=== PATIENT | female | born 1995 | race Caucasian/White ===

== ENCOUNTER 2017-01-16 03:08 | Inpatient (IN) | payer OTHER ==
[2017-01-16] MEDS ORDERED: Haloperidol INJ IV/IM* 5 MG/ML AMP IM ONE (03:32)
[2017-01-16] MEDS ORDERED: diPHENhydraMINE IV* 50 MG/ML 1 ml VIAL (BENADRYL) IM ONE (03:32)
[2017-01-16] MEDS ORDERED: LORazepam INJ* 2 MG/ML 1 ML VIAL IM ONE (03:32)
[2017-01-16] MEDS ORDERED: LORazepam INJ* 2 MG/ML 1 ML VIAL ONE (03:34)
[2017-01-16] MEDS ORDERED: Haloperidol INJ IV/IM* 5 MG/ML AMP ONE (03:34)
[2017-01-16] MEDS ORDERED: diPHENhydraMINE IV* 50 MG/ML 1 ml VIAL (BENADRYL) ONE (03:34)
--- NOTE | 2017-01-16 04:01 | ED ---
Ronald Webster Aidan, scribed for Jean Brennan MD on 01/16/17 at 0334 . Altered Mental Status - HPI Summary HPI Summary: 21 y/o female presents to the ED with a complaint of an acute, moderate-to- severe episode of AMS/psychosis that resulted from sleep deprivation. According to her boyfriend, she had been talking more frequently since 01/11/2017 when she arrived back to school from spring. 4 days ago, she stayed up all night preparing for an exam that she had 3 days ago. 2 days ago, her boyfriend estimates that she got roughly 5 hours of sleep. Yesterday, her boyfriend noticed that she was talking uncontrollably. She then had an episode of win, followed by screaming. Soon after, she called her mom, became very serious, and began talking about how C02 in the air is poisoning people. According to her mother, she has a history of sleep deprivation-induced psychosis. Her mother claims that she has been well for the past 2.5 years and has not been hospitalized for symptoms like these in past 3 years. No signs of SI/HI. - History Of Current Complaint Chief Complaint: EDMentalHealth Stated Complaint: MHE Time Seen by Provider: 01/16/17 03:09 Hx Obtained From: Family/[employer] - Pt's boyfriend Hx From Patient Unobtainable Due To: Altered Mental Status Hx Last Menstrual Period: unknown Last Known Well Date: before 01/10/17 Onset/Duration: Unknown, Still Present Timing: Intermittent - increased win followed by an episode of screaming and psychosis Severity Initially: Moderate Severity Currently: Moderate Character: Confusion - win, episode of screaming, psychosis Aggravating Factor(s): Other - sleep deprivation Alleviating Factor(s): Other - unknown Associated Signs And Symptoms: Negative: Negative - sleep deprivation, win, episode of screaming and psychosis Related History: Similar Episode/Diagnosed As: - Pt was hospitalized for similar symptoms resulting from sleep deprivation roughly 3 years ago - Allergies/Home Medications Allergies/Adverse Reactions: Allergies Allergy/AdvReac Type Severity Reaction Status Date / Time No Known Allergies Allergy Verified 01/16/17 03:18 Home Medications: Home Medications NK [No Home Medications Reported] 01/16/17 [History Confirmed 01/16/17] PMH/Surg Hx/FS Hx/Imm Hx Infectious Disease History: No Infectious Disease History: Denies: Traveled Outside the [place] in Last 30 Days - Family History Known Family History: Positive: Hypertension - Social History Occupation: Student Lives: Alone Alcohol Use: Occasionally Substance Use Type: Reports: Marijuana Smoking Status (MU): Unknown if Ever Smoked Review of Systems Constitutional: Negative Eyes: Negative ENT: Negative Cardiovascular: Negative Respiratory: Negative Gastrointestinal: Negative Genitourinary: Negative Musculoskeletal: Negative Skin: Negative Neurological: Other - AMS, win, sleep deprivation, episode of screaming, psychosis Negative: Headache, Weakness, Paresthesia, Numbness, Syncope, Slurred Speech Positive: Other - manic. Negative: Anxious, Depressed All Other Systems Reviewed And Are Negative: Yes Physical Exam Triage Information Reviewed: Yes Vital Signs On Initial Exam: Initial Vitals Temp Pulse Resp BP Pulse Ox 99.0 F 114 18 133/80 100 01/16/17 03:14 01/16/17 03:14 01/16/17 03:14 01/16/17 03:14 01/16/17 03:14 Vital Signs Reviewed: Yes Appearance: Positive: Well-Appearing - anxious Skin: Positive: Warm Head/Face: Positive: Normal Head/Face Inspection ENT: Positive: Hearing grossly normal Neck: Positive: Supple Respiratory/Lung Sounds: Positive: Breath Sounds Present Cardiovascular: Positive: RRR Abdomen Description: Positive: Nontender, Soft Bowel Sounds: Positive: Present Musculoskeletal: Positive: Strength/ROM Intact - [place] Coma Scale Coma Scale Total: 13 Diagnostics - Vital Signs Vital Signs Temp Pulse Resp BP Pulse Ox 01/16/17 03:20 99.0 F 114 18 133/80 100 01/16/17 03:14 99.0 F 114 18 133/80 100 - Laboratory Result Diagrams: 01/16/17 04:55 01/16/17 04:55 Lab Statement: Any lab studies that have been ordered have been reviewed, and results considered in the medical decision making process. Altered Mental Statu Course/Dx - Diagnoses Discharge Diagnoses: Psychosis - Provider Notifications Instructed by Provider To: Admit As Inpatient Discharge - Discharge Plan Condition: Fair Disposition: ADMITTED TO [facility] documentation as recorded by the Ronald sosa Aidan accurately reflects the service I personally performed and the decisions made by , Jean Brennan MD.
[2017-01-16 05:23] LABS: Hematocrit 35 % (35-47); Hemoglobin 11.7 g/dl (12.0-16.0); Mean Corpuscular HGB Conc 33 g/dl (31-36); Mean Corpuscular Hemoglobin 28 pg (27-31); Mean Corpuscular Volume 85 fL (80-97); Mean Platelet Volume 11 um3 (7.4-10.4); Red Blood Count 4.15 10^6/ul (4.0-5.4); Red Cell Distribution Width 13 % (10.5-15); White Blood Count 7.7 10^3/ul (3.5-10.8)
[2017-01-16 05:25] LABS: ALT 9 U/L (7-52); AST 17 U/L (13-39); Albumin 4.3 g/dL (3.2-5.2); Alkaline Phosphatase 46 U/L (34-104); Anion Gap 7 mmol/L (2-11); BUN/Creatinine Ratio 11.5 (8-20); Blood Urea Nitrogen 11 mg/dL (6-24); CO2 Carbon Dioxide 22 mmol/L (22-32); Calcium 9.8 mg/dL (8.6-10.3); Chloride 109 mmol/L (101-111); EGFR African American 92.6 (>60); Globulin 2.8 g/dL (2-4); Glucose 121 mg/dL (70-100); Potassium 3.7 mmol/L (3.5-5.0); Sodium 138 mmol/L (133-145); Total Protein 7.1 g/dL (6.4-8.9)
[2017-01-16 05:47] LABS: Acetaminophen < 15 mcg/mL; Alcohol < 10 mg/dL (<10); Salicylate < 2.50 mg/dL (<30)
[2017-01-16 05:58] LABS: TSH (Thyroid Stimulating Horm) 2.98 mcIU/mL (0.34-5.60)
--- NOTE | 2017-01-16 08:32 | ED ---
Elizabeth Webster Janilya, scribed for Gold Gifford MD on 01/16/17 at 0713 . Progress - Progress Note Progress Note: The patient was evaluated for mental health by Dr Levine. She will be admitted to his services for further workup. The pt is currently hemodynamically stable. The diagnoses are psychosis and bipolar disorder. - Consult/PCP Time Called: 04:00 Course/Dx - Diagnoses Provider Diagnoses: Psychosis, Bipolar 1 disorder - Provider Notifications Instructed by Provider To: Admit As Inpatient Discharge - Discharge Plan Condition: Stable Disposition: ADMITTED [facility] - The documentation as recorded by the Elizabeth sosa Janilya accurately reflects the service I personally performed and the decisions made by Balta ken Walter, MD.
[2017-01-16] MEDS ORDERED: LORazepam TAB(*) 0.5 MG PO PRN (15:36)
[2017-01-16] MEDS: QUEtiapine TAB* 100 MG PO SCH (21:33)
--- NOTE | 2017-01-16 21:33 | HP ---
Amended report to add co-signature to report. INITIAL PSYCHIATRIC ASSESSMENT: DATE OF ADMISSION: 01/15/17 SUPERVISING/ATTENDING PSYCHIATRIST FOR THIS CASE: Dr. Shae Levine. IDENTIFYING INFORMATION: The patient is a 21-year-old white female admitted to this facility on 01/15/17. Admitting status is involuntary. The patient was seen and examined. The chart was reviewed and the case was discussed with clinical staff available at the time of visit. CHIEF COMPLAINT/REASON FOR ADMISSION: The patient states "basically, a lot of work." HISTORY OF PRESENT ILLNESS: The patient explains to me that she was staying awake secondary to a lot of school work. She is a senior student at [employer] and she reports that she had been staying awake for the purpose of taking preliminary exams and trying to complete other project work. She believes that she may have been awake Wednesday, Wednesday, and night with only minimal naps from which she stated that she woke up feeling refreshed , but not completely so. According to the documentation of Dr. Brennan, the emergency room physician, the patient was brought to the emergency department secondary to [id number] acute mental status change/psychosis resulting from the aforementioned sleep deprivation. At that point, apparently collateral information was obtained from the patient's boyfriend who reported that she had been taking more frequently since approximately 01/11/17, at which point she had returned to school from the spring break. He also corroborated the fact that she had been staying up in preparation for exam and had roughly slept approximately 5 hours over the course of the past few days. Her boyfriend according to the ER documentation notes that she was talking uncontrollably and then experienced what was described as an episode of win followed by the patient screaming. Again, according to the emergency room physician documentation, she had called her mother and began talking about how carbon dioxide in the air is poisoning people. Collateral obtained from the patient's mother indicated that she does have a history of sleep deprivation- induced psychosis and that she had apparently been well for the last 2-1/2 years and she has not been hospitalized for similar symptoms in approximately 3 years. Today when I discussed the presenting symptoms, the patient denied any visual or auditory hallucinations. Similarly, she denied any delusional or paranoid thought processes seeming somewhat oblivious to the circumstances that resulted in her hospitalization save for her recognition of the sleep deprivation. Today the patient informs me that she had been seeing Dr. Healy back home in [place], which apparently had treated her at some point in the past for bipolar disorder. She states that she had in the past taken the mood stabilizer , Depakote, but has not needed it in approximately the past 2 years. She does, however, indicate that she would like to perhaps seek the services of a counselor who can help with stress management. The patient was last hospitalized in approximately October 2012. However, she did state "the symptoms at this time were not the same as bipolar episode." She went on to explain that this time she simply felt stressed, panicked, and unable to calm herself, insisting that the current symptomatology was "completely different" from these circumstances and the symptoms rather that resulted in her previous hospitalization. PAST MEDICAL HISTORY: The patient informs me that she has been diagnosed with narcolepsy and there was a mention in the clinical record of hypertension which the patient seems surprised by. It is also worth noting that the patient did admit to marijuana use; however, our review of ER note from Janiya Espinosa indicates that the patient's mother had reported that her daughter "tried pot once and it put her into psychosis." CURRENT MEDICATIONS: The patient denies abuse of any current medications. ALLERGIES: The patient has no known allergies. FAMILY PSYCHIATRIC ILLNESS: Denies. PSYCHOSOCIAL HISTORY: The patient is single. She lives on campus at [employer]. She is in approximately her senior year at [employer] studying psychology. She informs me that her goal is to obtain her doctor of psychology degree. She does acknowledge a legal history in which she was arrested while in [place], attempting to help a friend who was intoxicated. SUBSTANCE USE HISTORY: The patient does admit to marijuana use. She denies alcohol use. She denies cigarette smoking which she states she gave up approximately 2 years ago. She denies any other substances of abuse. REVIEW OF SYSTEMS: General: She denies fever, chills, or night sweats. Sleep : She reports that she has been sleeping poorly, describing sleep as elusive. Energy: She acknowledges she has had high energy. Appetite: Fair. HEENT: She does report that her hearing seems to have deteriorated over the past few years. She denies any changes in vision or difficulty chewing or swallowing. Cardiovascular: She denies chest pain or palpitations. Pulmonary: She does report rapid breathing which she attributes to occurring in the context of anxiety. Gastrointestinal: She denies nausea, vomiting, or diarrhea. Genitourinary/Reproductive: She denies dysuria. Neurologically, she does report some occasional tingling in her right hand related to an injury from the handcuffs secondary to the aforementioned incident that occurred in [place]. Musculoskeletal: She denies any joint or muscle pain. Endocrine//Hematopoietic/ Lymphatic: Denies any issues. PHYSICAL EXAMINATION GENERAL APPEARANCE: The patient is well developed, well nourished, alert, and cooperative, appear to be in no acute distress at the time of the exam. HEENT: Head is normocephalic, atraumatic. NECK: Appears normal on inspection. RESPIRATORY: No respiratory distress. Lungs clear in all guerrero. CARDIAC: Rate is 80. No rubs, gallops, or murmurs appreciated. ABDOMEN: Symmetrical without distention or guarding. Bowel sounds are active in all quadrants. No tenderness or rebound tenderness appreciated in the exam. MUSCULOSKELETAL: The patient demonstrates full range of motion. Extremities: Not edematous. NEUROLOGIC: The patient is alert and oriented x3 with no focal neuro deficits. No evidence of periorbital tremor or dyskinetic movements appreciated. SKIN: Intact. Warm and dry. REVIEW OF LABORATORY DATA: Undertaken at this time, the following abnormals are noted: Hemoglobin is low at 11.1, MPV is elevated at 11, lymphocyte percentage is low at 19.8. Chemistry studies reveal an elevation in her creatinine of 0.96, elevation in glucose at 121. There are no other labs available at this time for review. MENTAL STATUS EXAM: The patient is of healthy build and appears her stated age with overall good grooming and hygiene noted. She is currently wearing disposable scrubs. On gross examination, she appears to have no physical deformities. Attitude towards the examiner was pleasant and cooperative. I do not have an opportunity to witness her gait as she chose to remain in bed for the duration of the clinical interview. She did not, however, appear to be demonstrating any noteworthy mannerisms, gestures, or tics. Her activity level was within normal limits with no overt evidence of psychomotor excitation or retardation noted. She is alert and oriented to person, place, time, and event. Speech initially was clear, coherent, goal directed; however, throughout the clinical interview at different points, she was noted to become quite verbose and the rate of her speech did potato picker, but then it did seem to decrease to normal again. She readily made eye contact. Self-reported mood is euthymic. Denies depression. She does, however, report anxiety; however, is currently denying it at this point. Affect consistent to self-reported mood. She is currently denying visual or auditory hallucinations. No overt delusion or paranoid thought processes readily appreciated. Judgment and insight appear to be improving. She is currently denying suicidal and/or homicidal ideation and is future oriented. CLINICAL IMPRESSION: This is a 21-year-old white female admitted to [facility] on 01/15/17 after several days of sleep deprivation resulting in acute mental status change. In the emergency department, apparently, she was screaming and unable to calm self or self-soothe, resulting in the need to administer diphenhydramine hydrochloride, Haldol, and Ativan. The patient was admitted under 9.39 as she was clearly unsafe to remain in the community without intervention. ADMITTING DIAGNOSIS: Unspecified bipolar and related disorder versus substance - induced psychotic disorder. PLAN OF TREATMENT: Admit to behavioral services unit. Diet will be regular. Activity as tolerated with restrictions to the unit. The patient will participate in treatment planning activities, individual, group, and milieu therapy as well as medication management sessions and discharge planning until she is stable or referred to a higher level of care. We will initiate small dose of Seroquel at h.s. to aid with sleep. TREATMENT GOAL: Stabilization. PROGNOSIS: Fair. ESTIMATED LENGTH OF STAY: 5 to 7 days. DISCHARGE CRITERIA: The patient will be discharged when she is no longer a risk to herself or others and has met the criteria set forth by the treatment team for discharge. The case was reviewed with Dr. Levine who concurred with assessment, clinical impression, and overall plan of treatment. JONATHON FAUST, [place] [id number]/[facility] #: [id number] MAYRA
[2017-01-17] MEDS: QUEtiapine TAB* 100 MG PO SCH (21:24)
[2017-01-17 23:24] LABS: Urine Bacteria Absent (Absent); Urine Bilirubin Negative (Negative); Urine Glucose Negative (Negative); Urine Nitrite Negative (Negative)
[2017-01-17 23:32] LABS: Benzodiazepine Urine Screen None Detected (None Detect)
--- NOTE | 2017-01-18 12:14 | PN ---
Subjective - Subjective Service Type: 17856 Hosp care 25 min moderate complexity Subjective: Dania reports doing better. She recognizes she was psychotic and agitated - she attributes it to stress and sleep problems (not cannabis). She said she does not think she has Bipolar, rather substance induced psychosis (historically). She agrees with further hospital care, and after review of her Seroquel refusals , prior Depakote experience, and SGA and Depakote profiles, she opted for a Depakote retrial. She agreed with psych testing and planning local aftercare. She said she feels "understimulated" on the unit and on the verge of not being okay at all - we discussed some ways of dealing with it and I addressed her other major concern - missing academic activities - by connecting her with crisis services at [facility]. Objective - Appearance Appearance: Well Developed/Nourished Hygiene: Normal Grooming: Well Kept - Behavior Psychomotor Activities: Normal - Attitude and Relatedness Attitude and Relatedness: Superficially Cooperative - Speech Quality: Unpressured Latencies: Normal Quantity: Appropriate - Mood Patient's Decription of Mood: "Anxious" - Affect Affect Consistent with: Euthymia - Thought Process Patient's Thought Process: Coherent Thought Content: No Passive Wish, No Suicidal Planning, No Homicidal Ideation, No Paranoid Ideation - Sensorium Experiencing Hallucinations: No, Sensorium is Clear - Level of Consciousness Level of Consciousness: Alert - Impulse Control Impulse Control: Tenuous - Insight and Judgement Insight and Judgement: Fair Assessment - Assessment Merits Inpatient Hospitalization: For Immediate Safety, For Stabilization, To Initiate Treatment, For Ongoing Evaluation, Consolidate Improvements, For Discharge Planning Inpatient DSM-IV Dx: Psychotic disorder NOS. Bipolar disorder by history. Cannabis use disorder Clinical Impression: 21 y/o female with history of 2 prior psychiatric admissions, psychosis, treatment for Bipolar disorder, cannabis use. She was admitted after being brought to the hospital emergency room by ambulance. Concern centered on psychosis, with delusional ideation, and upset and agitation, in the setting of stress, reduced sleep, and cannabis use. Stabilizing here. Safe on checks. Adherent with routines but not medications. At variable but mild to moderate overt distress levels. Coping is impaired versus baseline. Not overtly psychotic now. This suggests transient psychosis possibly (as previously seen) due to cannabis use. Plan - Plan Treatment Plan: Name: DANIA ERWIN Birthdate: 1995 [id number] Continued Medication Management: Start Medication Medications: Current Medications Lorazepam (Ativan Tab(*)) 0.5 mg PO Q6H PRN PRN Reason: ANXIETY Quetiapine Fumarate (Seroquel Tab*) 100 mg PO BEDTIME LYUDMILA Last Admin: 01/17/17 21:24 Dose: Not Given - Discharge Plan Discharge Plan: Outpatient Follow Up Outpatient Program: Counseling/Psych Services at [facility]
[2017-01-18] MEDS ORDERED: diPHENhydraMINE PO* 50 MG PO PRN (12:15)
[2017-01-18] MEDS ORDERED: Nicotine Inhaler* 10 MG AMP INH PRN (12:15)
[2017-01-18] MEDS: Divalproex DR TAB(*) 500 MG PO SCH ×2 (14:14→21:10)
[2017-01-19] MEDS: Divalproex DR TAB(*) 500 MG PO SCH ×2 (09:10→20:20)
--- NOTE | 2017-01-19 13:31 | PN ---
Subjective - Subjective Service Type: 46719 Hosp care 15 min low complexity Subjective: Yara reports "doing fine." Makes no delusional comments and denies any persecutory type concerns. Denies side effects with Depakote. Is "bored" and eager to plan discharge. Denies mood symptoms. Objective - Appearance Appearance: Healthy Appearing Hygiene: Normal Grooming: Well Kept - Behavior Psychomotor Activities: Normal - Attitude and Relatedness Attitude and Relatedness: Superficially Cooperative Eye Contact: Good - Speech Quality: Unpressured Latencies: Normal Quantity: Appropriate - Mood Patient's Decription of Mood: "Fine" - Affect Observed Affect: Non-labile Affect Consistent with: Euthymia - Thought Process Patient's Thought Process: Coherent, Goal Directed Thought Content: No Passive Wish, No Suicidal Planning, No Homicidal Ideation, No Paranoid Ideation - Sensorium Experiencing Hallucinations: No, Sensorium is Clear - Level of Consciousness Level of Consciousness: Alert - Impulse Control Impulse Control: Intact - Insight and Judgement Insight and Judgement: Fair Assessment - Assessment Merits Inpatient Hospitalization: To Initiate Treatment, For Ongoing Evaluation , Consolidate Improvements, For Discharge Planning Inpatient DSM-IV Dx: Psychotic disorder NOS. Bipolar disorder by history. Cannabis use disorder Clinical Impression: 21 y/o female with history of 2 prior psychiatric admissions, psychosis, treatment for Bipolar disorder, cannabis use. She was admitted after being brought to the hospital emergency room by ambulance. Concern centered on psychosis, with delusional ideation, and upset and agitation, in the setting of stress, reduced sleep, and cannabis use. Stabilized here. Is safe on checks, adherent with routines and now adherent with Depakote. Has had progressively milder distress levels. Coping is improving, was impaired versus baseline. Remains free of overt psychotic symptoms. This suggests transient psychosis possibly (as previously seen) due to cannabis use. Medication management is with Depakote. Given status expect discharge in next 2 days. Plan - Plan Treatment Plan: Name: DANIA ERWIN Birthdate: 1995 [id number] Continued Medication Management: Start Medication Medications: Current Medications Diphenhydramine HCl (Benadryl Po*) 50 mg PO BEDTIME PRN PRN Reason: INSOMNIA Divalproex Sodium (Depakote Dr Tab(*)) 500 mg PO BID LYUDMILA Last Admin: 01/19/17 09:10 Dose: 500 mg Lorazepam (Ativan Tab(*)) 0.5 mg PO Q6H PRN PRN Reason: ANXIETY Nicotine (Nicotine Inhaler*) 10 mg INH Q2H PRN PRN Reason: CRAVING - Discharge Plan Discharge Plan: Outpatient Follow Up Outpatient Program: Counseling/Psych Services at [facility]
[2017-01-20 08:10] VITALS: BP 117/86
[2017-01-20] MEDS: Divalproex DR TAB(*) 500 MG PO SCH (09:02)
--- NOTE | 2017-01-20 10:12 | DS ---
Subjective - Subjective Service Types: [facility]36 [facility] Day [facility]mt simple under 30 min Discharge Date: 01/20/17 Subjective: Yara denied setbacks and reported doing "fine." She made no delusional comments and had good perspective on prior psychosis. She expressed readiness to deal with her academics and no impediment to coping. She said she sees no barriers to support, care or emergency help if needed. I left a VM message for her psychiatrist at home with my contact info and request to discuss case. We reviewed aftercare plan and medication. I called her [facility] at home and confirmed prior dose of Depkote ER 1000 - we planned for her to have a level checked here tomorrow. Objective - Appearance Appearance: Well Developed/Nourished Hygiene: Normal Grooming: Well Kept - Behavior Psychomotor Activities: Normal - Attitude and Relatedness Attitude and Relatedness: Cooperative Eye Contact: Good - Speech Quality: Unpressured Latencies: Normal Quantity: Appropriate - Mood Patient's Decription of Mood: "Fine" - Affect Observed Affect: Non-labile Affect Consistent with: Euthymia - Thought Process Patient's Thought Process: Coherent, Goal Directed Thought Content: No Passive Wish, No Suicidal Planning, No Homicidal Ideation, No Paranoid Ideation - Sensorium Experiencing Hallucinations: No, Sensorium is Clear - Level of Consciousness Level of Consciousness: Alert - Impulse Control Impulse Control: Intact - Insight and Judgement Insight and Judgement: Fair Treatment Course & Assessment Clinical Course & Impression: 21 y/o female with history of 2 prior psychiatric admissions, psychosis, treatment for Bipolar disorder, cannabis use. She was admitted after being brought to the hospital emergency room by ambulance. Concern centered on psychosis, with delusional ideation, and upset and agitation, in the setting of stress, reduced sleep, and cannabis use. 01/20/17 Clear for release. Yara rapidly stabilized here. She was safe on checks, adherent with routines and in agreement with the ongoing plan of care. She demonstrated progressively milder distress levels. Her coping improving, it was initially impaired versus baseline, and is no longer. She remained free of overt psychotic symptoms. This suggests transient psychosis possibly (as previously seen) due to cannabis use. Medication management is with Depakote. I confirmed her prior dose was 1000mg ER - current is 1000 DR. Given her status discharge is appropriate. Risk concern centered on her apparent impairment and risk of harm. At this time it is corrected and risk is back to baseline. Her condition and history represent chronic risk factors for suicide and impulsive violence, or inadvertent harm if impaired. Acute risk of intentional harm to self/other at this time is assessed as very low, on the basis of patient's low symptom burden, absence of impairment, and benign observed behaviors. Clear for Discharge: Adequate Clinical Respons, Acceptable Safety Profile, Low Utility of Inpt Care Inpatient DSM-IV Dx: Psychotic disorder NOS. Bipolar disorder by history. Cannabis use disorder Discharge Planning - Discharge Planning Discharge Plan: Outpatient Follow Up Outpatient Program: Counseling[facility]Psych Services at [facility] Recommendations for Continuing Care: Medication Management, Psychotherapy, Substance Abuse Counseling, Therapeutic Drug Levels - [place] [facility] [place], with instruction to fax result to [facility] Medications: Current Medications Divalproex Sodium (Depakote Dr Tab(*)) 500 mg PO BID LYUDMILA Last Admin: 01/20/17 09:02 Dose: 500 mg Discharge Planning: Prescriptions provided for discharge [x] Yes [] No Follow up care details as per social work arrangements. Patient response to discharge plan: [x] eager for discharge [] agreeable with discharge plan [] ambivalent about discharge [] disagrees with discharge today
--- NOTE | 2017-01-20 17:42 | CONS ---
PSYCHOLOGICAL REPORT: DATE OF CONSULT: 01/19/17 REASON FOR REFERRAL: Elicia was referred for psychological testing secondary to concerns regarding possible manic episode, as well as characterological vulnerabilities. TEST ADMINISTERED: Elicia completed the [place] Multiphasic Personality Inventory - 2 (MMPI-2). Elicia was given feedback in individual conversation regarding testing results. BEHAVIORAL OBSERVATIONS: Elicia is a 21-year-old [facility] megan, who cites recurring difficulties with insomnia as leading to behavioral agitation which appears to have been characterized by manic-type behaviors. She describes intentionally staying up over the course of approximately 3 nights ' time with only minimal amount of naps to study for exams and complete academic projects. She reports sleeping only about 5 hours cumulatively over that period of time and eventually was brought to the emergency department secondary to what appears to have been rather severe change in mental status secondary to the sleep deprivation. Collateral was obtained from her boyfriend, who describes her change in demeanor, reporting that she was presenting with pressured speech and becoming more and more agitated. She also expressed delusional believes about her parent's home being poisoned with carbon monoxide gas. Upon her presentation in the emergency department, she needed IM medications secondary to physical agitation characterized by screaming and acting out. She has prior psychiatric admission which she described being in the context of use of synthetic LSDs that led to psychotic thinking. She also described going through a great deal of stress as it was her freshman year at [employer] and that her parents were in the process of divorce. Presently, Elicia tends to minimize and rationalize her difficulties going to great lengths to describe how she felt "wired and excited" and appears to have been successful in at least taking her examination and was quite excited upon completion. She described then going for a run, which seems to have exacerbated her insomnia and then impaired her memory. She describes historical difficulties with poor sleep regulation, describing how she has done "all-nighters before" without adverse consequences. 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 She described how the Adderall also contributes to difficulties with insomnia. She continued to rationalize her presentation in the emergency department by stating "I didn't care about niceties" and in some way was trying to care of her body. She currently denies recreational drug use and identifies apathy as a larger concern of hers. TEST RESULTS: Elicia provides a valid protocol on this administration of the MMPI-2 having only marginal elevations on two external stressor scales. Her clinical profile was remarkable for a very profound elevation on the paranoia scale (T = 85). This may be consistent with her recent difficulties with delusional content characterized by paranoid ideation regarding people being poisoned with carbon monoxide gas, but also supports concerns regarding her presentation. Persons with similar scoring on the scale of the MMPI-2 are described as being rather hostile and guarded and overly sensitive to criticisms. They are prone to be argumentative and tend to blame others for problematic circumstances. They are further described as overtly expressing hostility and then engaging in rationalization as a means of self-defense. Descriptors for persons with a "spike 6" (singlular elevation on the paranoia scale) profile such as Elicia are further described as being rather egocentric and self- righteous at times. Persons tend to externalize blame for problematic circumstances that they have at least in part created. IMPRESSIONS AND RECOMMENDATIONS: As Elicia's overt psychotic range symptoms and behavioral agitation dissipated with adequate rest in very short period of time, it appears that her periodic insomnia was the likely etiology of her symptoms. Concerns remain that this could be bipolar 1 diagnosis secondary to her difficulties with historical insomnia and subsequent instability and mood and thought content. Secondary concerns revolve around her lack of insight and overt defensiveness regarding circumstances. It was immediately apparent that she goes to great lengths to avoid assuming responsibility for her decisions and circumstances, and was very irritable and angry with staff, demanding immediate discharge and refuting any need for further medical attention despite having initiated mood stabilization drugs. Impressions also support rather immature personality makeup as this commercial loan underwriter was impressed with what seemed to be lack of insight regarding professional options regarding her major in psychology and subsequent postgraduate studies and/or vocational interest. These comments seem to supersede any possible characterological framework in terms of personality disorders, with concerns regarding what may be recurrent mood instability as a primary etiology of her symptomatology. [id number]/CPS #: [id number] MTDD
== END 2017-01-20 11:15 | disposition home or self-care (01) | DRG 885 ==
LOC: ED 03:08 → BSU 09:15
PROVIDERS: ADMIT Internal Medicine; ATTEND Psychiatry & Neurology Psychiatry
DX: F23 Brief psychotic disorder (principal); I10 Essential (primary) hypertension; F31.9 Bipolar disorder, unspecified; F12.90 Cannabis use, unspecified, uncomplicated; G47.419 Narcolepsy without cataplexy
CPT/HCPCS: 36415; 80053; 80307; 80320; 80329; 81003; 81015; 84443; 85025; 99222; 99231; 99232; 99238; A9270-GY; G0480; J1200; J1630; J2060

== ENCOUNTER 2017-01-22 05:06 | Inpatient (IN) | payer OTHER ==
[2017-01-22] MEDS ORDERED: LORazepam INJ* 2 MG/ML 1 ML VIAL ONE (05:07)
[2017-01-22] MEDS ORDERED: Haloperidol INJ IV/IM* 5 MG/ML AMP ONE (05:07)
[2017-01-22] MEDS ORDERED: diPHENhydraMINE IV* 50 MG/ML 1 ml VIAL (BENADRYL) ONE (05:07)
[2017-01-22 05:54] LABS: Hematocrit 38 % (35-47); Hemoglobin 12.6 g/dl (12.0-16.0); Mean Corpuscular HGB Conc 33 g/dl (31-36); Mean Corpuscular Hemoglobin 28 pg (27-31); Mean Corpuscular Volume 85 fL (80-97); Mean Platelet Volume 11 um3 (7.4-10.4); Red Blood Count 4.53 10^6/ul (4.0-5.4); Red Cell Distribution Width 13 % (10.5-15); White Blood Count 9.1 10^3/ul (3.5-10.8)
[2017-01-22 06:06] LABS: ALT 12 U/L (7-52); AST 19 U/L (13-39); Albumin 4.6 g/dL (3.2-5.2); Alkaline Phosphatase 43 U/L (34-104); Anion Gap 12 mmol/L (2-11); BUN/Creatinine Ratio 16.8 (8-20); Blood Urea Nitrogen 20 mg/dL (6-24); CO2 Carbon Dioxide 18 mmol/L (22-32); Calcium 9.6 mg/dL (8.6-10.3); Chloride 106 mmol/L (101-111); EGFR African American 72.3 (>60); EGFR Non-African American 56.2 (>60); Globulin 2.7 g/dL (2-4); Glucose 159 mg/dL (70-100); Potassium 3.3 mmol/L (3.5-5.0); Sodium 136 mmol/L (133-145); Total Protein 7.3 g/dL (6.4-8.9)
[2017-01-22 06:23] LABS: Acetaminophen < 15 mcg/mL; Alcohol < 10 mg/dL (<10); Salicylate < 2.50 mg/dL (<30)
[2017-01-22 06:24] LABS: Urine Bacteria Absent (Absent); Urine Bilirubin Negative (Negative); Urine Glucose 1+(50 mg/dL) (Negative); Urine Nitrite Negative (Negative)
[2017-01-22 06:30] LABS: TSH (Thyroid Stimulating Horm) 2.88 mcIU/mL (0.34-5.60)
[2017-01-22 07:05] LABS: Benzodiazepine Urine Screen None Detected (None Detect)
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
[2017-01-22] MEDS ORDERED: Divalproex DR TAB(*) 500 MG PO ONE (11:29)
[2017-01-22] MEDS ORDERED: Divalproex ER TAB(*) 500 MG ONE (21:25)
[2017-01-22] MEDS ORDERED: Al Hydrox/Mg Hydrox/Simet LIQ* 30 ML UDC PO PRN (22:41)
[2017-01-22] MEDS: Divalproex DR TAB(*) 500 MG PO SCH (22:52)
[2017-01-23] MEDS: Divalproex DR TAB(*) 500 MG PO SCH ×2 (09:16→20:45)
[2017-01-23] MEDS: Vitamin THERAPEUTIC TAB PO SCH (09:16)
--- NOTE | 2017-01-23 20:31 | HP ---
INITIAL PSYCHIATRIC ASSESSMENT: DATE OF ADMISSION: SUPERVISING PHYSICIAN: Chester Walton MD. IDENTIFYING INFORMATION: The patient is a 21-year-old white female admitted to this facility on 01/22/17. Admitting status is 9.39. The patient was seen and examined. The chart was reviewed and case was discussed with the clinical staff available at the time of the visit. CHIEF COMPLAINT/REASON FOR ADMISSION: The patient states "I realized I am still not right. I need to not have stimulation." HISTORY OF PRESENT ILLNESS: The patient was recently released from [facility] after an approximate 4-day hospital stay for psychotic disorder, NOS; bipolar by history; and cannabis use disorder. Apparently, she had returned to [facility] to resume her classes; however, on 01/22/17, the patient was apparently having difficulty sleeping which was observed by her roommate to be behaving somewhat erratically. Allegedly, she went for a walk in the middle of the night. Her friend called the police and police brought her to [facility]. Apparently in the emergency department she needed to be medicated with Haldol, Benadryl, and Ativan secondary to combative behaviors. Today, during the clinical interview, Elicia acknowledges that she has been "doing things on a whim" and acknowledges that she has been preoccupied with a variety of thoughts and that she has been unable to stop the stream of thoughts. She states that upon being discharged, she had trouble sleeping Wednesday and and noticed that she had been becoming more agitated. At different times, some psychotic themes come to light, for instance she believes that she is allergic to heat and demonstrating flight of ideas as well as some grandiosity surrounding being a researcher and discovering things that no one in the world has ever discovered. She does report that she has been medication compliant since leaving the hospital; however, proceeded to state that she needs brand name Depakote because generic is not good for her. PAST MEDICAL HISTORY: There is a history of narcolepsy and hypertension, and a history of marijuana-induced psychosis. CURRENT MEDICATIONS: Include, 1. Divalproex sodium 500 mg p.o. b.i.d. 2. Multiple vitamins daily. ALLERGIES: The patient has no known allergies. FAMILY PSYCHIATRIC HISTORY: Denies. PSYCHOSOCIAL HISTORY: The patient is single. She lives in the campus at [employer] where she is studying psychology. After this semester, she has about 3 semesters remaining until she graduates. Her goal is to pursue a doctor of psychology degree. There is a history of arrest in [place], [place] when she attempted to help the friend who was intoxicated and the mounted police had arrested her for belligerence as per the patient. SUBSTANCE USE HISTORY: The patient admits to marijuana use. She denied alcohol use, quit smoking approximately 2 years ago. Her urine toxicology was presumptively positive again for cannabinoids, sample was obtained on 01/22/17 at 07:59. REVIEW OF SYSTEMS: The patient denies fever, chills, or night sweats. She reports that sleep is still problematic for her. She acknowledges that she has high energy. Appetite is fair. HEENT: She denies any changes in hearing or vision, denies any difficulty chewing or swallowing. Cardiovascular: She denies chest pain or palpitations. Pulmonary: She denies shortness of breath or cough. Gastrointestinal: She denies nausea, vomiting, diarrhea. Genitourinary/reproductive: She denies dysuria. Neurological: She denies any issues save for pain related to an old injury secondary to the handcuffs from the aforementioned incident which occurred in [place]. Musculoskeletal: She is reporting pain from old injuries, specifically pain in her right shoulder and neck region as well as pain in her right ear which began after a tragus piercing. She also reports occasional right hip pain, which she attributes to an old sports injury. PHYSICAL EXAMINATION GENERAL APPEARANCE: The patient is well developed, well nourished, alert, and cooperative and appears to be in no acute distress at the time of exam. HEENT: Head is normocephalic and atraumatic. NECK: Appears normal on inspection. CARDIAC: No rubs, gallops, or murmurs appreciated. ABDOMEN: Symmetrical without distention or guarding. MUSCULOSKELETAL: The patient demonstrates full range of motion. Extremities not edematous. NEUROLOGICAL: The patient is alert and oriented x3 with no focal neuro deficits. No evidence of periorbital tremor or dyskinetic movements appreciated. SKIN: Intact, warm and dry. DIAGNOSTIC STUDIES/LAB DATA: Review of laboratory data undertaken at this time and the following abnormals are noted. MPV is elevated at 11, potassium is low at 3.3, carbon dioxide is low at 18, anion gap is elevated at 12, creatinine is elevated at 1.19, glucose elevated at 159. Urine protein is elevated at 2+, urine ketones elevated at 1+, hyaline casts are present and urine glucose is 1+. As previously mentioned, urine toxicology is presumptively positive for cannabinoids. MENTAL STATUS EXAM: The patient is of healthy build and appears her stated age with good grooming and hygiene noted. On gross examination, she appears to have no physical deformities. Attitude towards the examiner was pleasant and cooperative. Gait was steady. Posture erect. She did not appear to be demonstrating any noteworthy mannerisms, gestures, or tics. Activity level was within normal parameters with no overt evidence of psychomotor excitation or retardation noted. She is alert and oriented to person, place, time and events. Speech is clear, coherent, goal-directed but at times tangential. Various times throughout the clinical interview, the rate of speech did increase, but then returned to normal again. Eye contact was readily made. Self-reported mood is euthymic. She is currently denying depression and anxiety. Her affect is consistent to self-reported mood. She denies visual or auditory hallucinations. Some delusional thought processes as described above and some grandiosity appreciated. Judgment and insight fair. She is currently denying suicidal or homicidal ideation and is future oriented. CLINICAL IMPRESSION: This is a 21-year-old white female readmitted to [facility] after hospital stay of several days. She was readmitted for continuing manic symptoms with combative behavior in the emergency department necessitating administration of medications. At this time, she has been readmitted under 9.39 status as she was clearly unable to remain in the community safely. ADMITTING DIAGNOSIS: Unspecified bipolar and related disorder versus substance - induced psychotic disorder. PLAN OF TREATMENT: Admit to the behavioral service unit. Diet will be regular. Activity as tolerated with restrictions to the unit. The patient will participate in treatment planning activities, individual, group, and milieu therapy as well as medication management sessions and discharge planning until she is stable or referred to a higher level of care. We will continue medications as established by Dr. Bolanos. TREATMENT GOAL: Stabilization. PROGNOSIS: Fair. ESTIMATED LENGTH OF STAY: 5 to 7 days. DISCHARGE CRITERIA: The patient will be discharged when she is no longer a risk to herself or others and has met the criteria set forth by the treatment team for discharge. This case was reviewed with Dr. Chester Walton who concurred with clinical assessment, clinical impression, and overall plan of treatment. CHESTER FAUST, DEBORA [id number]/[facility] #: [id number] [facility] HEALTH SYSTEMVinita
[2017-01-23] MEDS: QUEtiapine TAB* 100 MG PO SCH (21:26)
[2017-01-24] MEDS: Vitamin THERAPEUTIC TAB PO SCH (08:49)
[2017-01-24] MEDS: Divalproex DR TAB(*) 500 MG PO SCH ×2 (08:49→20:14)
[2017-01-24] MEDS: Acetaminophen TAB* 325 MG PO PRN (11:21)
[2017-01-24] MEDS: QUEtiapine TAB* 100 MG PO SCH (21:35)
[2017-01-25] MEDS: Divalproex DR TAB(*) 500 MG PO SCH ×2 (08:30→21:09)
[2017-01-25] MEDS: Vitamin THERAPEUTIC TAB PO SCH (08:30)
--- NOTE | 2017-01-25 12:31 | PN ---
Subjective - Subjective Service Type: 06250 Hosp care 25 min moderate complexity Subjective: I met the patient for the first time this morning and she responded with 15 minutes of circumstantial, uninterrupted speech when asked how she's doing. She is somatic, complaining of upper extremity pain, and somewhat grandiose, talking about her straight-A average and research interests. She indicates that her sleep is improving on quetiapine. Objective - Appearance Appearance: Well Developed/Nourished Dysmorphic Features: No Hygiene: Normal Grooming: Well Kept - Behavior Psychomotor Activities: Normal Exhibits Abnormal Movement: No - Attitude and Relatedness Attitude and Relatedness: Cooperative Eye Contact: Fair - Speech Quality: Pressured Latencies: Short Quantity: Copious - Mood Patient's Decription of Mood: "Great" - Affect Observed Affect: Euphoric Affect Consistent with: Euphoria - Thought Process Patient's Thought Process: Circumstantial Thought Content: Yes Paranoid Ideation, No Passive Wish, No Suicidal Planning, No Homicidal Ideation - Sensorium Experiencing Hallucinations: No, Sensorium is Clear Type of Hallucinations: Visual: No, Auditory: No, Command: No - Level of Consciousness Orientation: Yes Intact, Yes Orientated to Time, Yes Orientated to Place, Yes Orientated to Person - Impulse Control Impulse Control: Poor - Insight and Judgement Insight and Judgement: Impaired - Group Participation Particating in Group Activities: Yes - Medication Management Medication Management Adherence: Yes Assessment - Assessment Merits Inpatient Hospitalization: For Immediate Safety, For Stabilization Inpatient DSM-IV Dx: Bipolar DO, Manic, severe with psychotic features Clinical Impression: 21 y.o. 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 Plan - Plan Treatment Plan: Name: DANIA ERWIN Birthdate: 1995 [id number] The patient is tolerating a combination of depakote and quetiapine well. Await med effect. Continued Medication Management: Start Medication Medications: Current Medications Acetaminophen (Tylenol Tab*) 650 mg PO Q4H PRN PRN Reason: PAIN or TEMP > 101 F Last Admin: 01/24/17 11:21 Dose: 650 mg Al Hydrox/Mg Hydrox/Simethicone (Maalox Plus*) 30 ml PO Q4H PRN PRN Reason: INDIGESTION Divalproex Sodium (Depakote Dr Tab(*)) 500 mg PO BID [facility] Last Admin: 01/25/17 08:30 Dose: 500 mg Multivitamins (Theragran Tab*) 1 tab PO DAILY [facility] Last Admin: 01/25/17 08:30 Dose: 1 tab Quetiapine Fumarate (Seroquel Tab*) 100 mg PO BEDTIME [facility] Last Admin: 01/24/17 21:35 Dose: 100 mg - Discharge Plan Discharge Plan: Inpatient Hospitalization
[2017-01-25] MEDS: Acetaminophen TAB* 325 MG PO PRN (19:14)
[2017-01-25 20:26] LABS: BUN/Creatinine Ratio 17.3 (8-20); Calcium 10.1 mg/dL (8.6-10.3); EGFR African American 90.4 (>60); EGFR Non-African American 70.3 (>60); Potassium 4.2 mmol/L (3.5-5.0)
[2017-01-25] MEDS: QUEtiapine TAB* 100 MG PO SCH (23:10)
[2017-01-26] MEDS: Divalproex DR TAB(*) 500 MG PO SCH ×2 (09:08→20:59)
[2017-01-26] MEDS: Vitamin THERAPEUTIC TAB PO SCH (09:08)
--- NOTE | 2017-01-26 11:04 | PN ---
MHU: Group Therapy Note - Service Type Service Type: [id number] Group Psychotherapy - Cognitive Behavioral Psychotherapy: Elicia expressed delusional belief in cbt programming, claiming to have "cured cancer" while in the 8th grade, citing expense as the reason the government would not allow her to produce the drug for treatment. She was oppositional in responses to both peers and staff when attempts were made to redirect. Insight and judgement are impaired.
--- NOTE | 2017-01-26 11:27 | PN ---
Subjective - Subjective Service Type: 56871 Hosp care 15 min low complexity Subjective: The patient continues to present with over-productive speech and grandiosity. When told about staff concerns about her continued win, she demurs "Oh, I just talk and think fast naturally. This is the way I am. It's because I'm really intelligent. Objective - Appearance Appearance: Well Developed/Nourished Dysmorphic Features: No Hygiene: Normal Grooming: Fairly Well Kept - Behavior Psychomotor Activities: Normal Exhibits Abnormal Movement: No - Attitude and Relatedness Attitude and Relatedness: Cooperative Eye Contact: Good - Speech Quality: Pressured Latencies: Short Quantity: Copious - Mood Patient's Decription of Mood: "Great" - Affect Observed Affect: Euphoric Affect Consistent with: Euphoria - Thought Process Patient's Thought Process: Tangential Thought Content: Yes Paranoid Ideation, No Passive Wish, No Suicidal Planning, No Homicidal Ideation - Sensorium Experiencing Hallucinations: No, Sensorium is Clear Type of Hallucinations: Visual: No, Auditory: No, Command: No - Level of Consciousness Level of Consciousness: Alert Orientation: Yes Intact, Yes Orientated to Time, Yes Orientated to Place, Yes Orientated to Person - Impulse Control Impulse Control: Poor - Insight and Judgement Insight and Judgement: Impaired - Group Participation Particating in Group Activities: Yes - Medication Management Medication Management Adherence: Yes Assessment - Assessment Merits Inpatient Hospitalization: For Immediate Safety, For Stabilization Inpatient DSM-IV Dx: Bipolar DO, Manic, severe with psychotic features Clinical Impression: 21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 Plan - Plan Treatment Plan: Name: DANIA ERWIN Birthdate: 1995 [id number] The patient is tolerating a combination of depakote 500mg PO BID and quetiapine 100mg PO qhs well. Will increase quetiapine to 200mg PO qhs and await med effect. Continued Medication Management: Different Medication Medications: Current Medications Acetaminophen (Tylenol Tab*) 650 mg PO Q4H PRN PRN Reason: PAIN or TEMP > 101 F Last Admin: 01/25/17 19:14 Dose: 650 mg Al Hydrox/Mg Hydrox/Simethicone (Maalox Plus*) 30 ml PO Q4H PRN PRN Reason: INDIGESTION Divalproex Sodium (Depakote Dr Tab(*)) 500 mg PO BID [facility] Last Admin: 01/26/17 09:08 Dose: 500 mg Multivitamins (Theragran Tab*) 1 tab PO DAILY [facility] Last Admin: 01/26/17 09:08 Dose: 1 tab - Discharge Plan Discharge Plan: Inpatient Hospitalization
[2017-01-26] MEDS ORDERED: QUEtiapine TAB* 100 MG PO SCH (21:00)
[2017-01-27 07:45] LABS: HDL Cholesterol 37.2 mg/dL
[2017-01-27] MEDS: Divalproex DR TAB(*) 500 MG PO SCH (09:11)
[2017-01-27] MEDS: Vitamin THERAPEUTIC TAB PO SCH (09:11)
--- NOTE | 2017-01-27 14:07 | PN ---
MHU: Group Therapy Note - Service Type Service Type: [id number] Group Psychotherapy - Cognitive Behavioral Group Therapy ( CBT):Patient presented in CBT programming as disorganized and disruptive in discussion and needed repeated redirection to attend to presented materials.
[2017-01-27] MEDS ORDERED: clonazePAM TAB(*) 1 MG PO PRN (14:30)
--- NOTE | 2017-01-27 14:38 | PN ---
Subjective - Subjective Service Type: 74023 Hosp care 15 min low complexity Subjective: Patient continues to be hyperverbal and not particularly insightful about her condition. "I took the Seroquel last night and it made me feel like I was dying !" She shows me a patient hand-out with side effect medications, stating "Do you see this? This means that Seroquel is addictive and that if I got hooked on it and stopped taking it, my heart could explode." She makes other authoritative pronouncements about medications that are either inaccurate or greatly exaggerated. "Depakote ER is so far superior to the generic Depakote I' m getting from the nurses. They're basically two totally different medications. " She announces several times that she will refuse Seroquel tonight if offered and is only willing to use clonazepam as an adjunctive to her Depakote, which she demands be changed to the ER formulation. Staff reports she's been having many negative interactions with peers, who view her as intrusive and judgmental. She denies SI or HI. Objective - Appearance Appearance: Well Developed/Nourished Dysmorphic Features: No Hygiene: Normal Grooming: Well Kept - Behavior Psychomotor Activities: Abnormal-Increased Exhibits Abnormal Movement: No - Attitude and Relatedness Attitude and Relatedness: Superficially Cooperative Eye Contact: Good - Speech Quality: Pressured Latencies: Short Quantity: Copious - Mood Patient's Decription of Mood: "Great" - Affect Observed Affect: Euphoric Affect Consistent with: Euphoria - Thought Process Patient's Thought Process: Tangential Thought Content: Yes Paranoid Ideation, No Passive Wish, No Suicidal Planning, No Homicidal Ideation - Sensorium Experiencing Hallucinations: No, Sensorium is Clear Type of Hallucinations: Visual: Yes, Auditory: Yes, Command: No - Level of Consciousness Level of Consciousness: Alert Orientation: Yes Intact, Yes Orientated to Time, Yes Orientated to Place, Yes Orientated to Person - Impulse Control Impulse Control: Poor - Insight and Judgement Insight and Judgement: Impaired - Group Participation Particating in Group Activities: Yes - Medication Management Medication Management Adherence: Yes Assessment - Assessment Merits Inpatient Hospitalization: For Immediate Safety, For Stabilization Inpatient DSM-IV Dx: Bipolar DO, Manic, severe with psychotic features Clinical Impression: 21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 Plan - Plan Treatment Plan: Name: DANIA ERWIN Birthdate: 1995 [id number] The patient is demanding a change in her medications. Per her request we will change depakote to the ER formulation, but increase the dose to 1250mg PO qhs. Quetiapine will be discontinued in favor of prn clonazepam. Will recheck VPA over the weekend. Continued Medication Management: Different Medication Medications: Current Medications Acetaminophen (Tylenol Tab*) 650 mg PO Q4H PRN PRN Reason: PAIN or TEMP > 101 F Last Admin: 01/25/17 19:14 Dose: 650 mg Al Hydrox/Mg Hydrox/Simethicone (Maalox Plus*) 30 ml PO Q4H PRN PRN Reason: INDIGESTION Multivitamins (Theragran Tab*) 1 tab PO DAILY [facility] Last Admin: 01/27/17 09:11 Dose: 1 tab - Discharge Plan Discharge Plan: Inpatient Hospitalization
[2017-01-27] MEDS ORDERED: Haloperidol INJ IV/IM* 5 MG/ML AMP ONE (16:07)
[2017-01-27] MEDS ORDERED: LORazepam TAB(*) 1 MG ONE (16:08)
[2017-01-27] MEDS ORDERED: diPHENhydraMINE PO* 50 MG ONE (16:09)
[2017-01-27] MEDS ORDERED: Haloperidol TAB* 5 MG ONE (16:09)
[2017-01-28] MEDS: Divalproex ER TAB(*) 250 MG PO SCH ×2 (04:03→20:27)
[2017-01-28] MEDS: Vitamin THERAPEUTIC TAB PO SCH ×2 (08:57→09:00)
--- NOTE | 2017-01-28 12:29 | PN ---
Subjective - Subjective Service Type: 83123 Hosp care 15 min low complexity Subjective: The patient received seclusion and prn oral medications last evening for an episode in which she was interfering with the treatment of a peer and would not follow multiple staff prompts to try to redirect her. She remains hyperverbal and fixated on the incident, feeling that staff was mistreating the peer, who is wheelchair bound and low functioning. "They don't have to stand around him talking like he's not even a human being. I told them to leave him alone and then one of them shouted 'Mind your own business' and that just set me off!" The patient was able to sleep close to 10 hours and admits that the sleep was necessary for her. Today she shows lability, becoming tearful and stating "I need to go home now!" Objective - Appearance Appearance: Well Developed/Nourished Dysmorphic Features: No Hygiene: Normal Grooming: Well Kept - Behavior Psychomotor Activities: Abnormal-Increased Exhibits Abnormal Movement: No - Attitude and Relatedness Attitude and Relatedness: Superficially Cooperative Eye Contact: Good - Speech Quality: Pressured Latencies: Short Quantity: Copious - Mood Patient's Decription of Mood: "Anxious" - Affect Observed Affect: Labile Affect Consistent with: Euphoria - Thought Process Patient's Thought Process: Tangential Thought Content: Yes Paranoid Ideation, No Passive Wish, No Suicidal Planning, No Homicidal Ideation - Sensorium Experiencing Hallucinations: No, Sensorium is Clear Type of Hallucinations: Visual: No, Auditory: No, Command: No - Level of Consciousness Level of Consciousness: Alert Orientation: Yes Intact, Yes Orientated to Time, Yes Orientated to Place, Yes Orientated to Person - Impulse Control Impulse Control: Poor - Insight and Judgement Insight and Judgement: Impaired - Group Participation Particating in Group Activities: No - Medication Management Medication Management Adherence: Partial Assessment - Assessment Merits Inpatient Hospitalization: For Immediate Safety, For Stabilization Inpatient DSM-IV Dx: Bipolar DO, Manic, severe with psychotic features Clinical Impression: 21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 Plan - Plan Treatment Plan: Name: DANIA ERWIN Birthdate: 1995 [id number] The patient is now on Depakote ER 1250mg PO qhs and prn clonazepam. She is refusing adjunctive treatment with an antipsychotic at this time. Will recheck VPA over the weekend. Continued Medication Management: Different Medication Medications: Current Medications Acetaminophen (Tylenol Tab*) 650 mg PO Q4H PRN PRN Reason: PAIN or TEMP > 101 F Last Admin: 01/25/17 19:14 Dose: 650 mg Al Hydrox/Mg Hydrox/Simethicone (Maalox Plus*) 30 ml PO Q4H PRN PRN Reason: INDIGESTION Clonazepam (Klonopin Tab(*)) 1 mg PO Q8H PRN PRN Reason: AGITATION/ANXIETY/INSOMNIA Divalproex Sodium (Depakote Er Tab(*)) 1,250 mg PO BEDTIME [facility] Last Admin: 01/28/17 04:03 Dose: Not Given Multivitamins (Theragran Tab*) 1 tab PO DAILY [facility] Last Admin: 01/28/17 09:00 Dose: 1 tab - Discharge Plan Discharge Plan: Inpatient Hospitalization
[2017-01-29] MEDS: Vitamin THERAPEUTIC TAB PO SCH (08:52)
--- NOTE | 2017-01-29 14:54 | PN ---
MHU: Group Therapy Note - Service Type Service Type: [id number] Group Psychotherapy - Cognitive Behavioral Group Therapy ( CBT):Patient was attentive and participatory in CBT programming this morning, and remained in good behavioral control. Patient expressed positive insights regarding relevant treatment interventions and goals.
--- NOTE | 2017-01-29 15:22 | PN ---
Subjective - Subjective Service Type: 58429 Hosp care 15 min low complexity Subjective: The patient is very angry about the verbage presented to her on her treatment plan. She particularly objects to staff observations that she is "still expansive but sleeping better." "Of course I'm sleeping better. I'm narcoleptic...Hello???" She is loud and haranguing, repeating several times that staff does not care about her or her fellow patients. She is now taking Depakote ER and feels fine on it. Objective - Appearance Appearance: Well Developed/Nourished Dysmorphic Features: No Hygiene: Normal Grooming: Well Kept - Behavior Psychomotor Activities: Normal Exhibits Abnormal Movement: No - Attitude and Relatedness Attitude and Relatedness: Irritable Eye Contact: Good - Speech Quality: Pressured Latencies: Short Quantity: Copious - Mood Patient's Decription of Mood: "Great" - Affect Observed Affect: Euphoric Affect Consistent with: Euphoria - Thought Process Patient's Thought Process: Tangential Thought Content: Yes Paranoid Ideation, No Passive Wish, No Suicidal Planning, No Homicidal Ideation - Sensorium Experiencing Hallucinations: No, Sensorium is Clear Type of Hallucinations: Visual: No, Auditory: No, Command: No - Level of Consciousness Level of Consciousness: Agitated Orientation: Yes Intact, Yes Orientated to Time, Yes Orientated to Place, Yes Orientated to Person - Impulse Control Impulse Control: Poor - Insight and Judgement Insight and Judgement: Impaired - Group Participation Particating in Group Activities: Yes - Medication Management Medication Management Adherence: Yes Assessment - Assessment Merits Inpatient Hospitalization: For Immediate Safety, For Stabilization Inpatient DSM-IV Dx: Bipolar DO, Manic, severe with psychotic features Clinical Impression: 21 y.o. 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 Plan - Plan Treatment Plan: Name: DANIA ERWIN Birthdate: 1995 [id number] The patient is now on Depakote ER 1250mg PO qhs and prn clonazepam. She is refusing adjunctive treatment with an antipsychotic at this time. Will recheck VPA on Wednesday and continue to monitor her affect and behavior. Continued Medication Management: Different Medication Medications: Current Medications Acetaminophen (Tylenol Tab*) 650 mg PO Q4H PRN PRN Reason: PAIN or TEMP > 101 F Last Admin: 01/25/17 19:14 Dose: 650 mg Al Hydrox/Mg Hydrox/Simethicone (Maalox Plus*) 30 ml PO Q4H PRN PRN Reason: INDIGESTION Clonazepam (Klonopin Tab(*)) 1 mg PO Q8H PRN PRN Reason: AGITATION/ANXIETY/INSOMNIA Divalproex Sodium (Depakote Er Tab(*)) 1,250 mg PO BEDTIME [facility] Last Admin: 01/28/17 20:27 Dose: 1,250 mg Multivitamins (Theragran Tab*) 1 tab PO DAILY [facility] Last Admin: 01/29/17 08:52 Dose: 1 tab - Discharge Plan Discharge Plan: Inpatient Hospitalization
[2017-01-29] MEDS: Divalproex ER TAB(*) 250 MG PO SCH (19:53)
[2017-01-30] MEDS: Vitamin THERAPEUTIC TAB PO SCH (08:56)
[2017-01-30] MEDS: Divalproex ER TAB(*) 250 MG PO SCH (20:43)
[2017-01-31] MEDS: Vitamin THERAPEUTIC TAB PO SCH (08:56)
[2017-01-31] MEDS: Divalproex ER TAB(*) 250 MG PO SCH (20:58)
[2017-02-01] MEDS: Vitamin THERAPEUTIC TAB PO SCH (08:26)
[2017-02-01 11:10] VITALS: BP 131/71
--- NOTE | 2017-02-01 11:41 | PN ---
MHU: Group Therapy Note - Service Type Service Type: 87307 Group Psychotherapy - Cognitive Behavioral Group Therapy ( CBT):Patient was attentive and participatory in CBT programming this morning, and remained in good behavioral control. Patient expressed positive insights regarding relevant treatment interventions and goals.
--- NOTE | 2017-02-02 03:31 | DS ---
DISCHARGE SUMMARY: DATE OF ADMISSION: 01/22/17 DATE OF DISCHARGE: 02/01/17 DISCHARGE DIAGNOSES: [place] I: Bipolar disorder, type 1, most recent episode manic, severe with psychotic features. [place] II: Deferred. [place] III: None. [place] IV: Moderate academic stressors. [place] V: At the time of admission was 30 and at the time of discharge is 60. CONDITION AT THE TIME OF DISCHARGE: Stable. The patient tolerating her Depakote quite well. Her level is therapeutic at 102 and she is showing no evidence of intolerance to this medication. Her affect appears much more euthymic. She is no longer making grandiose or delusional statements and her insight is good indicating her own needs to follow through with outpatient services in the community. She does have an appointment this afternoon at the [facility]. That appointment is set for 2 p.m. and she will be following up with med management and psychotherapy services with that provider. She denies any suicidal or homicidal ideations. MENTAL STATUS EXAMINATION: The patient is a young white female with long brown hair and eye glasses. She is clean, well groomed, calm, cooperative, and makes good eye contact. Speech has normal rate, tone, and volume. Mood is euthymic with full affect. Thought process is linear and goal-directed. Thought content is significant for her desire to be discharged from the hospital and continue with her education at [employer]. She is denying suicidal or homicidal ideation. She denies auditory or visual hallucinations. Insight and judgment is fair given her willingness to follow up with outpatient services in the community. Cognitively, she is awake and alert with what would appear to be an average intellect. DISCHARGE INSTRUCTIONS: To the patient are as follows: A. Medications: She is to take Depakote ER 1250 mg p.o. every night. She is also to take Klonopin 1 mg p.o. every day as needed for anxiety. B. Diet: Regular. C. Activities: As tolerated. The patient is a nonsmoker. There are no laboratory or diagnostic testing pending at the time of discharge. D. Followup care: The patient will follow up this afternoon at 2 p.m. at [facility] on the campus of [facility]. HOSPITAL COURSE: Part A: Reason for admission: The patient is a 21-year-old single white female, [employer] under-graduate, who was just discharged from this facility 2 days prior, who returned due to erratic behavior and inability to care for herself in the community. Apparently, she had just been hospitalized on a 4-day stay here on the [facility]; however, when she returned to her dormitory on the [facility], her roommates felt that she was continuing to act oddly. At one point, she got up in the middle of the night to go for a walk and her roommates were so concerned that they called the police. In the emergency room, she was combative and required p.r.n. medication with Haldol, Benadryl, and Ativan. During the clinical interview, she admitted that she had trouble sleeping the 2 nights that she was home. 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 Part B: Psychiatric treatment rendered: The patient was admitted to the Adult Behavioral Health Unit, where she was placed on q.30 minute checks for her own safety. She continued to be grandiose and over talkative and was placed on an adjunctive trial of Seroquel initially at 100 mg, then increased to 200. Unfortunately, the patient did not tolerate this stating that the medication made her feel like she was "dying." For this reason, it was discontinued. We felt that she would do better on a once daily Depakote medication and so it was switched from regular Depakote 500 mg b.i.d. to extended-release Depakote at the dose of 1250 mg once daily, which she tolerated well. Her therapeutic blood level was 102 on the morning of discharge; however, the patient showed no evidence of side effects and stated that she felt good on this dose. Progressively throughout the hospitalization, she became more cooperative. There was at least 1 episode, where she was agitated and had to go to the quiet room and there received p.o. Benadryl, Ativan, and Haldol because of her intrusiveness and interference from the treatment peers. However, at this point , she had several days of calm and cooperative behavior and she is future oriented, wanting to resume her studies and finish up her semester at [employer]. At this time, we see no barrier to her safe discharge back to community treatment in a less restrictive setting. [id number]/CPS #: [id number] MTDD
== END 2017-02-01 13:00 | disposition home or self-care (01) | DRG 885 ==
LOC: ED 05:06 → BSU 19:45
PROVIDERS: ADMIT Psychiatry & Neurology Psychiatry; ATTEND Psychiatry & Neurology Psychiatry
DX: F31.2 Bipolar disorder, current episode manic severe with psychotic features (principal); F12.90 Cannabis use, unspecified, uncomplicated; G47.419 Narcolepsy without cataplexy
CPT/HCPCS: 36415; 80048; 80053; 80061; 80164; 80307; 80320; 80329; 81003; 81015; 82306; 83036; 84443; 84702; 85025; 86703; 90853; 99222; 99231; 99232; 99238; A9270-GY; G0480; J1200; J1630; J2060

== ENCOUNTER 2017-02-05 13:56 | Inpatient (IN) | payer OTHER ==
[2017-02-05 14:33] LABS: Hematocrit 38 % (35-47); Hemoglobin 12.5 g/dl (12.0-16.0); Mean Corpuscular HGB Conc 33 g/dl (31-36); Mean Corpuscular Hemoglobin 28 pg (27-31); Mean Corpuscular Volume 85 fL (80-97); Mean Platelet Volume 10 um3 (7.4-10.4); Red Blood Count 4.42 10^6/ul (4.0-5.4); Red Cell Distribution Width 13 % (10.5-15); White Blood Count 8.5 10^3/ul (3.5-10.8)
[2017-02-05 14:50] LABS: ALT 8 U/L (7-52); AST 17 U/L (13-39); Albumin 4.5 g/dL (3.2-5.2); Alkaline Phosphatase 49 U/L (34-104); Anion Gap 7 mmol/L (2-11); BUN/Creatinine Ratio 11.5 (8-20); Blood Urea Nitrogen 12 mg/dL (6-24); CO2 Carbon Dioxide 25 mmol/L (22-32); Calcium 10.2 mg/dL (8.6-10.3); Chloride 105 mmol/L (101-111); EGFR African American 84.5 (>60); EGFR Non-African American 65.7 (>60); Globulin 2.9 g/dL (2-4); Glucose 133 mg/dL (70-100); Potassium 3.6 mmol/L (3.5-5.0); Sodium 137 mmol/L (133-145); Total Protein 7.4 g/dL (6.4-8.9)
[2017-02-05 15:18] LABS: Urine Bilirubin Negative (Negative); Urine Glucose Negative (Negative); Urine Nitrite Negative (Negative)
[2017-02-05 15:18] LABS: Acetaminophen < 15 mcg/mL; Alcohol < 10 mg/dL (<10); Salicylate < 2.50 mg/dL (<30)
[2017-02-05 15:23] LABS: TSH (Thyroid Stimulating Horm) 2.77 mcIU/mL (0.34-5.60)
[2017-02-05 15:38] LABS: Benzodiazepine Urine Screen None Detected (None Detect)
[2017-02-05] MEDS ORDERED: Haloperidol TAB* 5 MG PO ONE (19:18)
[2017-02-05] MEDS ORDERED: LORazepam TAB(*) 1 MG PO ONE (19:18)
[2017-02-05] MEDS ORDERED: Haloperidol TAB* 5 MG PO PRN (19:30)
[2017-02-05] MEDS ORDERED: LORazepam TAB(*) 1 MG PO PRN (19:30)
[2017-02-05] MEDS ORDERED: Al Hydrox/Mg Hydrox/Simet LIQ* 30 ML UDC PO PRN (20:45)
[2017-02-05] MEDS ORDERED: Acetaminophen TAB* 325 MG PO PRN (20:45)
[2017-02-05] MEDS ORDERED: LORazepam INJ* 2 MG/ML 1 ML VIAL ONE (22:00)
[2017-02-05] MEDS ORDERED: Haloperidol INJ IV/IM* 5 MG/ML AMP ONE (22:01)
[2017-02-05] MEDS ORDERED: diPHENhydraMINE IV* 50 MG/ML 1 ml VIAL (BENADRYL) ONE (22:06)
--- NOTE | 2017-02-05 22:34 | ED ---
Carlos Webster Benjamin, scribed for Jose Guadalupe Albrecht MD on 02/05/17 at 1558 . Psychiatric Complaint - HPI Summary HPI Summary: 21yo female BIB EMS and police after yelling and not amking sense in public. Limited HPI as pt is uncooperative to exam. - History Of Current Complaint Chief Complaint: EDMentalHealth Time Seen by Provider: 02/05/17 14:02 Hx Obtained From: EMS Hx From Patient Unobtainable Due To: Other - uncooperative Hx Last Menstrual Period: unknown ?: No Onset/Duration: Sudden Onset, Still Present Timing: Intermittent Episode Lasting Severity Initially: Mild Severity Currently: Mild Character: Manic Aggravating Factor(s): Nothing Alleviating Factor(s): Nothing Associated Signs And Symptoms: Positive: Negative Related History: Positive For: Prior Psychiatric Issues - Allergies/Home Medications Allergies/Adverse Reactions: Allergies Allergy/AdvReac Type Severity Reaction Status Date / Time No Known Allergies Allergy Verified 02/05/17 21:48 PMH/Surg Hx/FS Hx/Imm Hx Sensory History: Reports: Hx Contacts or Glasses Denies: Hx Cataracts, Hx Eye Injury, Hx Eye Prosthesis, Hx Glaucoma, Hx Legally Blind, Hx Macular Degeneration, Hx Vision Problem, Hx Deafness, Hx Hearing Aid, Hx Hearing Problem, Other Sensory Impairments Opthamlomology History: Reports: Hx Contacts or Glasses Denies: Hx Cataracts, Hx Eye Injury, Hx Eye Prosthesis, Hx Glaucoma, Hx Legally Blind, Hx Macular Degeneration, Hx Vision Problem, Other Sensory Impairments Neurological History: Reports: Other Neuro Impairments/Disorders - Narcolepsy Psychiatric History: Reports: Hx Inpatient Treatment, Hx Bipolar Disorder, Hx of Violent Episodes Against Others Denies: Hx Eating Disorder - Surgical History Surgery Procedure, Year, and Place: tonsilectomy age 6 Hx Anesthesia Reactions: No Infectious Disease History: Yes Infectious Disease History: Denies: Hx Clostridium Difficile, Hx Hepatitis, Hx Human Immunodeficiency Virus (HIV), Hx of Known/Suspected MRSA, Hx Shingles, Hx Tuberculosis, Traveled Outside the [place] in Last 30 Days - Family History Known Family History: Positive: Hypertension, Other - depression, hypomania - Social History Occupation: Student Lives: Alone Alcohol Use: None Alcohol Amount: "recovering addict" Substance Use Type: Reports: None Smoking Status (MU): Never Smoked Tobacco Have You Smoked in the Last Year: No Review of Systems Constitutional: Negative Eyes: Negative ENT: Negative Cardiovascular: Negative Respiratory: Negative Gastrointestinal: Negative Genitourinary: Negative Musculoskeletal: Negative Skin: Negative Neurological: Negative Psychological: Normal All Other Systems Reviewed And Are Negative: Yes Physical Exam Triage Information Reviewed: Yes Vital Signs On Initial Exam: Initial Vitals Temp Pulse Resp BP Pulse Ox 98.6 F 66 20 140/85 99 02/05/17 14:21 02/05/17 14:21 02/05/17 14:21 02/05/17 14:21 02/05/17 14:21 Vital Signs Reviewed: Yes Appearance: Positive: Well-Appearing, No Pain Distress, Well-Nourished Skin: Positive: Warm, Skin Color Reflects Adequate Perfusion, Dry Head/Face: Positive: Normal Head/Face Inspection Eyes: Positive: Normal ENT: Positive: Normal ENT inspection Neck: Positive: Supple, Nontender Respiratory/Lung Sounds: Positive: Clear to Auscultation, Breath Sounds Present Cardiovascular: Positive: RRR Abdomen Description: Positive: Nontender, No Organomegaly Bowel Sounds: Positive: Present Musculoskeletal: Positive: Normal, Strength/ROM Intact Neurological: Positive: Normal, Sensory/Motor Intact, Alert, Oriented to Person Place, Time, CN Intact II-III - Tal Coma Scale Coma Scale Total: 15 Diagnostics - Vital Signs Vital Signs Temp Pulse Resp BP Pulse Ox 02/05/17 14:21 98.6 F 66 20 140/85 99 - Laboratory Lab Results: Lab Results 02/05/17 02/05/17 02/05/17 Range/Units 14:19 14:19 15:00 WBC 8.5 (3.5-10.8) 10^3/ul RBC 4.42 (4.0-5.4) 10^6/ul Hgb 12.5 (12.0-16.0) g/dl Hct 38 (35-47) % MCV 85 (80-97) fL MCH 28 (27-31) pg MCHC 33 (31-36) g/dl RDW 13 (10.5-15) % Plt Count 217 (150-450) 10^3/ul MPV 10 (7.4-10.4) um3 Neut % (Auto) 70.4 (38-83) % Lymph % (Auto) 18.9 L (25-47) % Evangeline % (Auto) 10.0 H (1-9) % Eos % (Auto) 0.4 (0-6) % Baso % (Auto) 0.3 (0-2) % Absolute Neuts (auto) 6.0 (1.5-7.7) 10^3/ul Absolute Lymphs (auto) 1.6 (1.0-4.8) 10^3/ul Absolute Monos (auto) 0.9 H (0-0.8) 10^3/ul Absolute Eos (auto) 0 (0-0.6) 10^3/ul Absolute Basos (auto) 0 (0-0.2) 10^3/ul Absolute Nucleated RBC 0.01 10^3/ul Nucleated RBC % 0.1 Sodium 137 (133-145) mmol/L Potassium 3.6 (3.5-5.0) mmol/L Chloride 105 (101-111) mmol/L Carbon Dioxide 25 (22-32) mmol/L Anion Gap 7 (2-11) mmol/L BUN 12 (6-24) mg/dL Creatinine 1.04 H (0.51-0.95) mg/dL Est GFR ( Amer) 84.5 (>60) Est GFR (Non-Af Amer) 65.7 (>60) BUN/Creatinine Ratio 11.5 (8-20) Glucose 133 H (70-100) mg/dL Calcium 10.2 (8.6-10.3) mg/dL Total Bilirubin 0.40 (0.2-1.0) mg/dL AST 17 (13-39) U/L ALT 8 (7-52) U/L Alkaline Phosphatase 49 (34-104) U/L Total Protein 7.4 (6.4-8.9) g/dL Albumin 4.5 (3.2-5.2) g/dL Globulin 2.9 (2-4) g/dL Albumin/Globulin Ratio 1.6 (1-3) TSH 2.77 (0.34-5.60) mcIU/mL Beta HCG, Quant < 0.60 mIU/mL Urine Color Yellow Urine Appearance Clear Urine pH 7.0 (5-9) Ur Specific Dailey 1.005 L (1.010-1.030) Urine Protein Negative (Negative) Urine Ketones Negative (Negative) Urine Blood Negative (Negative) Urine Nitrate Negative (Negative) Urine Bilirubin Negative (Negative) Urine Urobilinogen Negative (Negative) Ur Leukocyte Esterase Negative (Negative) Urine Glucose Negative (Negative) Salicylates < 2.50 (<30) mg/dL Acetaminophen < 15 mcg/mL Valproic Acid 75.0 (50-100) mcg/mL Serum Alcohol < 10 (<10) mg/dL Result Diagrams: 02/05/17 14:19 02/05/17 14:19 Lab Statement: Any lab studies that have been ordered have been reviewed, and results considered in the medical decision making process. Course/Dx - Course Course Of Treatment: Ms. Rocha remained mainic and confused throughout her stay in the ED and was admitted to the MHU on an involuntary basis for her own safety. Assessment/Plan: Medically cleared (15:28) for [facility] - Differential Dx/Clinical Impression Provider Diagnosis: Bipolar 1 disorder with moderate win Discharge - Discharge Plan Condition: Stable [facility] [place] The documentation as recorded by the Carlos sosa Benjamin accurately reflects the service I personally performed and the decisions made by , Jose Guadalupe Albrecht MD.
[2017-02-05] MEDS: Divalproex ER TAB(*) 500 MG PO SCH (22:46)
[2017-02-05] MEDS: Divalproex ER TAB(*) 250 MG PO SCH (22:46)
[2017-02-06] MEDS ORDERED: Vitamin THERAPEUTIC TAB ONE (05:21)
[2017-02-06] MEDS: Vitamin THERAPEUTIC TAB PO SCH ×2 (08:57→18:08)
--- NOTE | 2017-02-06 13:12 | HP ---
HISTORY AND PHYSICAL: DATE OF ADMISSION: 02/05/17 JUSTIFICATION FOR ADMISSION: The patient is in need of 24-hour supervision and care secondary to bi zarre agitated behavior and inability to keep herself safe in a less restrictive setting. 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 Apparently, the patient was just discharg ed from the [facility] on February 01 and earlier on the date of admission, she was found o n a bridge at [facility] yelling and singing loudly, putting stickers on the bridge railing. The patient was aggressive towards the apprehending officers using vulgarity and acting in a bizar re fashion. She continued with these behaviors and aggressiveness in our emergency department resul ting in the administration of p.r.n. medications. It is not appearing at this time that she has the ability to make appropriate decisions to care for herself or keep herself safe. When she was trans ferred to the inpatient unit, she continued to rapidly pace, stating "I need to be released because I took the voluntary verbal order and I know that it is none of your business, so I am going to leav e no matter what." Her thought process was clearly tangential and grandiose. At one point, she sta wisam "I am a professional [place] and I can't be here tomorrow. I am going on a field trip and it is special." She was hyperverbal and pressured, loud, and hostile. She began to antagonize selected peers, becoming upset and shouting, "I am trying to help them, that's my right because you have oppr essed them and locked them in here." She declined her at bedtime Depakote ER, stating "I need to le ave to go get my own Depakote because this is poison." Later she was given a STAT order of Benadryl , Haldol, and Ativan through an IM injection. This morning when I met her, she is hostile, threaten ing to bere me. She is clearly hyperverbal, distractible, grandiose with flight of Ideas over talkat iveness and difficulty sleeping. She is floridly manic and clearly requiring further hospitalizatio n. PAST PSYCHIATRIC HISTORY: The patient was admitted to our unit initially on January 16 to January 20t h. She was discharged by Dr. Brandon Bolanos, but then reappeared on January 22, requiring readmission and stayed that time until February 01. On both occasions, she was stabilized on Depakote. We did try to augment this either with p.r.n. clonazepam or schedule of Seroquel at night, but she claims that she did not tolerate these. I did receive a phone call message from her mother indicating that she has done well when adding Geodon to her Depakote and the patient is willing to attempt this strateg y at this time. She apparently has a psychiatrist in the [facility] area and she has had multipl e past admissions at other facilities for bipolar win. PAST MEDICAL HISTORY: Significant for narcolepsy and hypertension. SUBSTANCE ABUSE HISTORY: Significant for abuse of cannabinoids. She denies abuse of other illicit drugs or alcohol. It is notable that her urine drug screen is positive for cannabis on admission. MEDICATIONS: 1. She takes Depakote ER 1250 mg at night. 2. She takes clonazepam 1 mg as needed for anxiety. ALLERGIES: She has no known drug allergies. FAMILY PSYCHIATRIC HISTORY: Denied. PSYCHOSOCIAL HISTORY: The patient is single. She lives in the campus of [facility] where s he is studying psychology. She apparently has three semesters remaining until she graduates and her goal is to pursue a PhD in psychology. She does have a history of arrest in [facility] when she attended to help an intoxicated friend and was actually arrested for belligerence. REVIEW OF SYSTEMS: The patient denies headache or double vision. She denies chest pain, sore throa t, cough, or difficulty breathing. She denies abdominal pain, nausea, vomiting, or diarrhea. She d enies rashes, enlarged lymph nodes, fevers, changes in weight, or difficulty ambulating. PHYSICAL EXAMINATION VITAL SIGNS: Blood pressure 140/85, heart rate 66, respiratory rate 20, and oxygen saturations are 99% on room air. HEENT: Head is normocephalic and atraumatic. NECK: Supple. LUNGS: Chest is clear to auscultation bilaterally. HEART: Reveals normal heart sounds. ABDOMEN: Soft and nontender. SKIN: Warm and dry. EXTREMITIES: Shows no sign of edema. NEUROLOGIC: She is grossly intact with no focal deficits. DIAGNOSTIC STUDIES/LAB DATA: Labs are as follows: Her complete blood count is within normal limit s. Complete metabolic panel shows that her creatinine level is 1.04 and her glucose is slightly rosanne vated at 133. Her urinalysis is within normal limits and her urine drug screen is negative for all substances tested. Her valproic acid level is therapeutic at 75. MENTAL STATUS EXAM: The patient is a young white female with long curly hair and eyeglasses. She i s wearing blue scrub. Grooming appears to be suspicion. There is no evidence of abnormal movements , although she is psychomotor agitated. Speech is loud and hyperverbal and pressured. Mood is anant c with a labile affect. Thought process is tangential. Thought content is significant for grandiose delusions. She is denying auditory or visual hallucinations. Insight and judgement are impaired g butch her agitated behavior and refusal to take antipsychotic medications prior to this admission. C ognitively, she is awake and alert with what would appear to be slightly high average intelligence g butch her academic history. DIAGNOSES: [place] I: Bipolar disorder, type 1, most recent episode of manic, severe with psychotic fe atures. [place] II: Deferred. [place] III: Hypertension and history of narcolepsy. [place] IV: Severe acad emic stressors. [place] V: At this time is 25. 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 She is on a therapeutic dose of t he Depakote ER, but clearly needs augmentation with antipsychotic therapy. We will start her on a t rial of Geodon 40 mg p.o. at bedtime and titrate this to efficacy. If she refuses antipsychotics, I think we are forced at this time to pursue judges' order. PLAN/RECOMMENDATIONS: Admit the patient to the psychiatric inpatient service and place on q.15 leonid bib checks for her own safety, resume Depakote therapy and start Geodon, contact mother for further collateral information, and encourage her to participate in milieu treatments. We will set up outpa tient followup at [facility]. [id number]/[facility] #: [id number]
[2017-02-06] MEDS: Divalproex ER TAB(*) 250 MG PO SCH (20:31)
[2017-02-06] MEDS: Divalproex ER TAB(*) 500 MG PO SCH (20:31)
[2017-02-06] MEDS: Ziprasidone * 20 MG CAP (generic Geodon) PO SCH (20:32)
[2017-02-06] MEDS ORDERED: Haloperidol TAB* 5 MG PO PRN (21:37)
[2017-02-06] MEDS ORDERED: LORazepam TAB(*) 1 MG PO PRN (21:37)
[2017-02-07] MEDS: Vitamin THERAPEUTIC TAB PO SCH (08:41)
[2017-02-07] MEDS: Divalproex ER TAB(*) 500 MG PO SCH (20:34)
[2017-02-07] MEDS: Divalproex ER TAB(*) 250 MG PO SCH (20:35)
[2017-02-07] MEDS: Ziprasidone * 20 MG CAP (generic Geodon) PO SCH (20:36)
[2017-02-08] MEDS: Vitamin THERAPEUTIC TAB PO SCH ×2 (09:41→10:02)
--- NOTE | 2017-02-08 11:29 | PN ---
Subjective - Subjective Service Type: 32837 Hosp care 15 min low complexity Subjective: Patient remains grandiose, hyperverbal, pressured with elevated thought rate and argumentative, condescending interpersonal style. "And you, Dr. Cho. You are going to be the next person that I bere at this place. It was because of you that I'm here. It was because of you that I missed my field trip. It's because of you that I'm not home right now studying for my exams! Do you know who you are dealing with? I am the smartest fucking person at [facility]!" The patient has been med-compliant, somewhat isolative and yelling at staff periodically. She denies SI or HI. Objective - Appearance Appearance: Well Developed/Nourished Dysmorphic Features: No Hygiene: Normal Grooming: Fairly Well Kept - Behavior Psychomotor Activities: Abnormal-Increased Exhibits Abnormal Movement: No - Attitude and Relatedness Attitude and Relatedness: Hostile Eye Contact: Good - Speech Quality: Pressured Latencies: Short Quantity: Copious - Affect Observed Affect: Labile Affect Consistent with: Euphoria - Thought Process Patient's Thought Process: Tangential Thought Content: Yes Paranoid Ideation, No Passive Wish, No Suicidal Planning, No Homicidal Ideation - Sensorium Experiencing Hallucinations: No, Sensorium is Clear Type of Hallucinations: Visual: No, Auditory: No, Command: No - Level of Consciousness Level of Consciousness: Agitated Orientation: Yes Intact, Yes Orientated to Time, Yes Orientated to Place, Yes Orientated to Person - Impulse Control Impulse Control: Poor - Insight and Judgement Insight and Judgement: Impaired - Group Participation Particating in Group Activities: No - Medication Management Medication Management Adherence: Yes Assessment - Assessment Merits Inpatient Hospitalization: For Immediate Safety, For Stabilization Inpatient DSM-IV Dx: Bipolar Type I, MRE Manic, severe with psychotic features Clinical Impression: 21 y.o. single, white, female [employer] readmitted for her third acute psychiatric admission in the last three weeks due to disruptive, agitated , manic behavior in the community. Plan - Plan Treatment Plan: Name: DANIA ERWIN Birthdate: 1995 [id number] The patient is tolerating Depakote ER 1250mg PO qhs and ziprasidone 40mg PO qhs well. We will increase ziprasidone to 120mg PO qhs this evening. Await med effect. Continued Medication Management: Different Medication Medications: Current Medications Acetaminophen (Tylenol Tab*) 650 mg PO Q4H PRN PRN Reason: PAIN or TEMP > 101 F Al Hydrox/Mg Hydrox/Simethicone (Maalox Plus*) 30 ml PO Q4H PRN PRN Reason: INDIGESTION Divalproex Sodium (Depakote Er Tab(*)) 1,000 mg PO BEDTIME [facility] Last Admin: 02/07/17 20:34 Dose: 1,000 mg Divalproex Sodium (Depakote Er Tab(*)) 250 mg PO BEDTIME [facility] Last Admin: 02/07/17 20:35 Dose: 250 mg Haloperidol (Haldol Tab*) 5 mg PO Q6H PRN PRN Reason: AGITATION Lorazepam (Ativan Tab(*)) 2 mg PO Q6H PRN PRN Reason: AGITATION Multivitamins (Theragran Tab*) 1 tab PO DAILY [facility] Last Admin: 02/08/17 10:02 Dose: 1 tab Ziprasidone (Geodon (Generic) *) 80 mg PO BEDTIME [facility] Ziprasidone (Geodon (Generic) *) 40 mg PO BEDTIME [facility] - Discharge Plan Discharge Plan: Inpatient Hospitalization
[2017-02-08] MEDS: Divalproex ER TAB(*) 250 MG PO SCH (20:27)
[2017-02-08] MEDS: Ziprasidone * 20 MG CAP (generic Geodon) PO SCH ×2 (20:27→20:28)
[2017-02-08] MEDS: Divalproex ER TAB(*) 500 MG PO SCH (20:27)
[2017-02-09] MEDS: Vitamin THERAPEUTIC TAB PO SCH ×2 (10:04→10:06)
--- NOTE | 2017-02-09 11:22 | PN ---
MHU: Group Therapy Note - Service Type Service Type: [id number] Group Psychotherapy - Cognitive Behavioral Group Therapy ( CBT):Patient was attentive and participatory in CBT programming this morning, and remained in good behavioral control. Patient expressed positive insights regarding relevant treatment interventions and goals.
--- NOTE | 2017-02-09 12:05 | PN ---
Subjective - Subjective Service Type: 04483 Hosp care 15 min low complexity Subjective: The patient is calm and cooperative. Much more interactive and less hostile today. No evidence of grandiosity. She is tolerating ziprasidone well and has been participatory in milieu activities today. Denies SI or HI. Objective - Appearance Appearance: Well Developed/Nourished Dysmorphic Features: No Hygiene: Normal Grooming: Well Kept - Behavior Psychomotor Activities: Normal Exhibits Abnormal Movement: No - Attitude and Relatedness Attitude and Relatedness: Cooperative Eye Contact: Fair - Speech Quality: Unpressured Latencies: Normal Quantity: Appropriate - Mood Patient's Decription of Mood: "Okay" - Affect Observed Affect: Fair Affect Consistent with: Euthymia - Thought Process Patient's Thought Process: Coherent Thought Content: No Passive Wish, No Suicidal Planning, No Homicidal Ideation, No Paranoid Ideation - Sensorium Experiencing Hallucinations: No, Sensorium is Clear Type of Hallucinations: Visual: No, Auditory: No, Command: No - Level of Consciousness Level of Consciousness: Alert Orientation: Yes Intact, Yes Orientated to Time, Yes Orientated to Place, Yes Orientated to Person - Impulse Control Impulse Control: Tenuous - Insight and Judgement Insight and Judgement: Fair - Group Participation Particating in Group Activities: Yes - Medication Management Medication Management Adherence: Yes Assessment - Assessment Merits Inpatient Hospitalization: Consolidate Improvements, Pending Safe DC Plan Inpatient DSM-IV Dx: Bipolar Type I, MRE Manic, severe with psychotic features Clinical Impression: 21 y.o. single, white, female [facility] readmitted for her third acute psychiatric admission in the last three weeks due to disruptive, agitated , manic behavior in the community. Plan - Plan Treatment Plan: Name: DANIA ERWIN Birthdate: 1995 [id number] The patient appears much more euthymic this morning and she is tolerating Depakote ER 1250mg PO qhs and ziprasidone 120mg PO qhs well. Consider discharging back to the community if she maintains similar gains tomorrow, (02/10 ). Continued Medication Management: Different Medication Medications: Current Medications Acetaminophen (Tylenol Tab*) 650 mg PO Q4H PRN PRN Reason: PAIN or TEMP > 101 F Al Hydrox/Mg Hydrox/Simethicone (Maalox Plus*) 30 ml PO Q4H PRN PRN Reason: INDIGESTION Divalproex Sodium (Depakote Er Tab(*)) 1,000 mg PO BEDTIME [facility] Last Admin: 02/08/17 20:27 Dose: 1,000 mg Divalproex Sodium (Depakote Er Tab(*)) 250 mg PO BEDTIME [facility] Last Admin: 02/08/17 20:27 Dose: 250 mg Haloperidol (Haldol Tab*) 5 mg PO Q6H PRN PRN Reason: AGITATION Lorazepam (Ativan Tab(*)) 2 mg PO Q6H PRN PRN Reason: AGITATION Multivitamins (Theragran Tab*) 1 tab PO DAILY [facility] Last Admin: 02/09/17 10:06 Dose: 1 tab Ziprasidone (Geodon (Generic) *) 80 mg PO BEDTIME [facility] Last Admin: 02/08/17 20:27 Dose: 80 mg Ziprasidone (Geodon (Generic) *) 40 mg PO BEDTIME [facility] Last Admin: 02/08/17 20:28 Dose: 40 mg - Discharge Plan Discharge Plan: Outpatient Follow Up Outpatient Program: Counseling/Psych Services at [place] Lab Results - Lab Results Lab Results: The patient recent lipid panel and hemoglobin A1c were as follows: 01/27/17: Total Cholesterol: 124 Triglycerides: 68 LDL: 73 HDL: 37.2 01/23/17: HgA1c: 5.6%
[2017-02-09] MEDS: Divalproex ER TAB(*) 500 MG PO SCH (20:55)
[2017-02-09] MEDS: Divalproex ER TAB(*) 250 MG PO SCH (20:56)
[2017-02-09] MEDS: Ziprasidone * 20 MG CAP (generic Geodon) PO SCH ×2 (20:56→20:57)
--- NOTE | 2017-02-10 11:33 | PN ---
Subjective - Subjective Service Type: 85568 Hosp care 15 min low complexity Subjective: Patient presents as hyperverbal and grandiose. Her mother called and voiced reservations about Dania's wellness and ability to function in the outpatient setting. Mother also expressed to staff that patient is minimizing problem of cannabis usage. Patient is very argumentative with me, denying her need for further inpatient care. "I am going to write you up because you're not doing your job properly. It's because of you that I'm missing [place]!!!" Objective - Appearance Appearance: Well Developed/Nourished Dysmorphic Features: No Hygiene: Normal Grooming: Well Kept - Behavior Psychomotor Activities: Abnormal-Increased Exhibits Abnormal Movement: No - Attitude and Relatedness Attitude and Relatedness: Hostile Eye Contact: Good - Speech Quality: Pressured Latencies: Short Quantity: Copious - Mood Patient's Decription of Mood: "Great" - Affect Observed Affect: Labile Affect Consistent with: Euphoria - Thought Process Patient's Thought Process: Tangential Thought Content: Yes Paranoid Ideation, No Passive Wish, No Suicidal Planning, No Homicidal Ideation - Sensorium Experiencing Hallucinations: No, Sensorium is Clear Type of Hallucinations: Visual: No, Auditory: No, Command: No - Level of Consciousness Level of Consciousness: Agitated Orientation: Yes Intact, Yes Orientated to Time, Yes Orientated to Place, Yes Orientated to Person - Impulse Control Impulse Control: Poor - Insight and Judgement Insight and Judgement: Impaired - Group Participation Particating in Group Activities: No - Medication Management Medication Management Adherence: Yes Assessment - Assessment Merits Inpatient Hospitalization: For Immediate Safety, For Stabilization Inpatient DSM-IV Dx: Bipolar Type I, MRE Manic, severe with psychotic features Clinical Impression: 21 y.o. single, white, female [employer] readmitted for her third acute psychiatric admission in the last three weeks due to disruptive, agitated , manic behavior in the community. Plan - Plan Treatment Plan: Name: DANIA ERWIN Birthdate: 1995 [id number] The patient appears manic and hostile this morning. She is tolerating Depakote ER 1250mg PO qhs and ziprasidone 120mg PO qhs well. Will increase ziprasidone to 160mg PO qhs. Likely keep through the weekend for further stabilization as patient has had two recent failed discharges. Continued Medication Management: Different Medication Medications: Current Medications Acetaminophen (Tylenol Tab*) 650 mg PO Q4H PRN PRN Reason: PAIN or TEMP > 101 F Al Hydrox/Mg Hydrox/Simethicone (Maalox Plus*) 30 ml PO Q4H PRN PRN Reason: INDIGESTION Divalproex Sodium (Depakote Er Tab(*)) 1,000 mg PO BEDTIME [facility] Last Admin: 02/09/17 20:55 Dose: 1,000 mg Divalproex Sodium (Depakote Er Tab(*)) 250 mg PO BEDTIME [facility] Last Admin: 02/09/17 20:56 Dose: 250 mg Haloperidol (Haldol Tab*) 5 mg PO Q6H PRN PRN Reason: AGITATION Lorazepam (Ativan Tab(*)) 2 mg PO Q6H PRN PRN Reason: AGITATION Multivitamins (Theragran Tab*) 1 tab PO DAILY [facility] Last Admin: 02/09/17 10:06 Dose: 1 tab Ziprasidone (Geodon (Generic) *) 160 mg PO BEDTIME [facility] - Discharge Plan Discharge Plan: Inpatient Hospitalization
[2017-02-10] MEDS: Vitamin THERAPEUTIC TAB PO SCH (11:54)
[2017-02-10] MEDS: Divalproex ER TAB(*) 250 MG PO SCH (20:41)
[2017-02-10] MEDS: Divalproex ER TAB(*) 500 MG PO SCH (20:41)
[2017-02-10] MEDS: Ziprasidone CAP* 80 MG PO SCH (20:41)
[2017-02-11] MEDS: Vitamin THERAPEUTIC TAB PO SCH (09:06)
--- NOTE | 2017-02-11 10:57 | PN ---
Subjective - Subjective Service Type: 23030 Hosp care 15 min low complexity Subjective: The patient remains pressured and overtalkative. She goes on at great lengths about the misunderstanding which led to rehospitalization and states that she's here "under protest" because she should be with her friends back at [place]. I spoke with her mother, Hilaria ([phone]), who feels, after speaking with her frequently by phone, that she is not at her baseline. Mother feels the patient is smoking more cannabis than what she's admitting to. Maty disagrees and states she can stop smoking pot anytime she chooses. She denies SI or HI. Objective - Appearance Appearance: Well Developed/Nourished Dysmorphic Features: No Hygiene: Normal Grooming: Well Kept - Behavior Psychomotor Activities: Normal Exhibits Abnormal Movement: No - Attitude and Relatedness Attitude and Relatedness: Cooperative Eye Contact: Fair - Speech Quality: Pressured Latencies: Short Quantity: Copious - Mood Patient's Decription of Mood: "Great" - Affect Observed Affect: Euphoric Affect Consistent with: Euphoria - Thought Process Patient's Thought Process: Tangential Thought Content: Yes Paranoid Ideation, No Passive Wish, No Suicidal Planning, No Homicidal Ideation - Sensorium Experiencing Hallucinations: No, Sensorium is Clear Type of Hallucinations: Visual: No, Auditory: No, Command: No - Level of Consciousness Level of Consciousness: Alert Orientation: Yes Intact, Yes Orientated to Time, Yes Orientated to Place, Yes Orientated to Person - Impulse Control Impulse Control: Poor - Insight and Judgement Insight and Judgement: Impaired - Group Participation Particating in Group Activities: Yes - Medication Management Medication Management Adherence: Yes Assessment - Assessment Merits Inpatient Hospitalization: For Immediate Safety, For Stabilization Inpatient DSM-IV Dx: Bipolar Type I, MRE Manic, severe with psychotic features Clinical Impression: 21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 Plan - Plan Treatment Plan: Name: DANIA ERWIN Birthdate: 1995 [id number] The patient remains manic. She is tolerating Depakote ER 1250mg PO qhs and ziprasidone 160mg PO qhs well. Have left a message with outpatient psychiatrist , Jayme Healy ([phone]) to confer about treatment plan. Likely keep through the weekend for further stabilization as patient has had two recent failed discharges. Continued Medication Management: Different Medication Medications: Current Medications Acetaminophen (Tylenol Tab*) 650 mg PO Q4H PRN PRN Reason: PAIN or TEMP > 101 F Al Hydrox/Mg Hydrox/Simethicone (Maalox Plus*) 30 ml PO Q4H PRN PRN Reason: INDIGESTION Divalproex Sodium (Depakote Er Tab(*)) 1,000 mg PO BEDTIME [facility] Last Admin: 02/10/17 20:41 Dose: 1,000 mg Divalproex Sodium (Depakote Er Tab(*)) 250 mg PO BEDTIME [facility] Last Admin: 02/10/17 20:41 Dose: 250 mg Haloperidol (Haldol Tab*) 5 mg PO Q6H PRN PRN Reason: AGITATION Lorazepam (Ativan Tab(*)) 2 mg PO Q6H PRN PRN Reason: AGITATION Multivitamins (Theragran Tab*) 1 tab PO DAILY [facility] Last Admin: 02/11/17 09:06 Dose: 1 tab Ziprasidone (Geodon Cap*) 160 mg PO BEDTIME [facility] Last Admin: 02/10/17 20:41 Dose: 160 mg - Discharge Plan Discharge Plan: Inpatient Hospitalization
[2017-02-11] MEDS ORDERED: LORazepam INJ* 2 MG/ML 1 ML VIAL ONE (17:05)
[2017-02-11] MEDS ORDERED: diPHENhydraMINE IV* 50 MG/ML 1 ml VIAL (BENADRYL) ONE (17:06)
[2017-02-11] MEDS ORDERED: Haloperidol INJ IV/IM* 5 MG/ML AMP ONE (17:06)
[2017-02-11] MEDS ORDERED: diPHENhydraMINE IV* 50 MG/ML 1 ml VIAL (BENADRYL) IM ONE (17:10)
[2017-02-11] MEDS ORDERED: Haloperidol INJ IV/IM* 5 MG/ML AMP IM ONE (17:10)
[2017-02-11] MEDS ORDERED: LORazepam INJ* 2 MG/ML 1 ML VIAL IM ONE (17:10)
[2017-02-11] MEDS ORDERED: diPHENhydraMINE PO* 50 MG PO ONE (18:00)
[2017-02-11] MEDS ORDERED: diPHENhydraMINE PO* 50 MG ONE (18:13)
[2017-02-11] MEDS: Ziprasidone CAP* 80 MG PO SCH (20:51)
[2017-02-11] MEDS: Divalproex ER TAB(*) 500 MG PO SCH (20:51)
[2017-02-11] MEDS: Divalproex ER TAB(*) 250 MG PO SCH (20:51)
[2017-02-12] MEDS: Vitamin THERAPEUTIC TAB PO SCH (08:39)
[2017-02-12] MEDS ORDERED: diPHENhydraMINE PO* 50 MG PO PRN (14:35)
--- NOTE | 2017-02-12 14:39 | PN ---
Subjective - Subjective Service Type: 76682 Hosp care 15 min low complexity Subjective: The patient had an episode of agitation last evening that required stat IM haldol, benadryl and ativan. She was upset that a male peer, who was also acting out, was receiving involuntary IM meds, and started screaming about her role in ensuring that other patients on the unit not be violated. Today, she remains grandiose, telling me about her good grades and taking me to task for her perception that I'm treating her like a child. Objective - Appearance Appearance: Well Developed/Nourished Dysmorphic Features: No Hygiene: Normal Grooming: Well Kept - Behavior Psychomotor Activities: Abnormal-Increased Exhibits Abnormal Movement: No - Attitude and Relatedness Attitude and Relatedness: Hostile Eye Contact: Poor - Speech Quality: Pressured Latencies: Short Quantity: Copious - Mood Patient's Decription of Mood: "Great" - Affect Observed Affect: Euphoric Affect Consistent with: Euphoria - Thought Process Patient's Thought Process: Tangential Thought Content: Yes Paranoid Ideation, No Passive Wish, No Suicidal Planning, No Homicidal Ideation - Sensorium Experiencing Hallucinations: No, Sensorium is Clear Type of Hallucinations: Visual: Yes, Auditory: Yes, Command: Yes - Level of Consciousness Level of Consciousness: Alert Orientation: Yes Intact, Yes Orientated to Time, Yes Orientated to Place, Yes Orientated to Person - Impulse Control Impulse Control: Poor - Insight and Judgement Insight and Judgement: Impaired - Group Participation Particating in Group Activities: No - Medication Management Medication Management Adherence: Yes Assessment - Assessment Merits Inpatient Hospitalization: For Immediate Safety, For Stabilization Inpatient DSM-IV Dx: Bipolar Type I, MRE Manic, severe with psychotic features Clinical Impression: 21 y.o. single, white, female [facility] readmitted for her third acute psychiatric admission in the last three weeks due to disruptive, agitated , manic behavior in the community. Plan - Plan Treatment Plan: Name: DANIA ERWIN Birthdate: 1995 [id number] The patient remains manic. She is tolerating Depakote ER 1250mg PO qhs and ziprasidone 160mg PO qhs well. Have left a message with outpatient psychiatrist , Jayme Healy ([phone]) to confer about treatment plan. Likely keep through the weekend for further stabilization as patient has had two recent failed discharges. Continued Medication Management: Different Medication Medications: Current Medications Acetaminophen (Tylenol Tab*) 650 mg PO Q4H PRN PRN Reason: PAIN or TEMP > 101 F Al Hydrox/Mg Hydrox/Simethicone (Maalox Plus*) 30 ml PO Q4H PRN PRN Reason: INDIGESTION Diphenhydramine HCl (Benadryl Po*) 50 mg PO Q6H PRN PRN Reason: AGITATION/ANXIETY/INSOMNIA Divalproex Sodium (Depakote Er Tab(*)) 1,000 mg PO BEDTIME [facility] Last Admin: 02/11/17 20:51 Dose: 1,000 mg Divalproex Sodium (Depakote Er Tab(*)) 250 mg PO BEDTIME [facility] Last Admin: 02/11/17 20:51 Dose: 250 mg Haloperidol (Haldol Tab*) 5 mg PO Q6H PRN PRN Reason: AGITATION Lorazepam (Ativan Tab(*)) 2 mg PO Q6H PRN PRN Reason: AGITATION Multivitamins (Theragran Tab*) 1 tab PO DAILY [facility] Last Admin: 02/12/17 08:39 Dose: 1 tab Ziprasidone (Geodon Cap*) 160 mg PO BEDTIME [facility] Last Admin: 02/11/17 20:51 Dose: 160 mg - Discharge Plan Discharge Plan: Inpatient Hospitalization
[2017-02-12] MEDS: Ziprasidone CAP* 80 MG PO SCH (21:04)
[2017-02-12] MEDS: Divalproex ER TAB(*) 250 MG PO SCH (21:04)
[2017-02-12] MEDS: Divalproex ER TAB(*) 500 MG PO SCH (21:04)
[2017-02-13] MEDS: Vitamin THERAPEUTIC TAB PO SCH (10:35)
[2017-02-13] MEDS: Divalproex ER TAB(*) 250 MG PO SCH (21:01)
[2017-02-13] MEDS: Ziprasidone CAP* 80 MG PO SCH (21:01)
[2017-02-13] MEDS: Divalproex ER TAB(*) 500 MG PO SCH (21:01)
[2017-02-14] MEDS: Vitamin THERAPEUTIC TAB PO SCH (09:44)
[2017-02-14] MEDS: Divalproex ER TAB(*) 500 MG PO SCH (20:23)
[2017-02-14] MEDS: Divalproex ER TAB(*) 250 MG PO SCH (20:23)
[2017-02-14] MEDS: Ziprasidone CAP* 80 MG PO SCH (20:23)
[2017-02-15 07:35] VITALS: BP 98/62
[2017-02-15] MEDS: Vitamin THERAPEUTIC TAB PO SCH (08:26)
--- NOTE | 2017-02-15 11:25 | PN ---
MHU: Group Therapy Note - Service Type Service Type: 20218 Group Psychotherapy - Cognitive Behavioral Group Therapy ( CBT):Patient was attentive and participatory in CBT programming this morning, and remained in good behavioral control. Patient expressed positive insights regarding relevant treatment interventions and goals.
--- NOTE | 2017-02-16 00:07 | DS ---
DISCHARGE SUMMARY: DATE OF ADMISSION: 02/05/17 DATE OF DISCHARGE: 02/15/17 DISCHARGE DIAGNOSES: Clothier I: Bipolar disorder type 1, most recent episode is manic, severe with psychotic features. Clothier II: Deferred. Clothier III: Hypertension and history of narcolepsy. Clothier IV: Severe academic stressor. Clothier V: At that time of admission was 23 and at that time of discharge is 60. CONDITION AT THE TIME OF DISCHARGE: Stable. The patient is calm and cooperative. She appears to be euthymic. Her behavior has been exemplary in the milieu over the weekend and she has had no further episodes of acting out. She has been safe on all checks and when it comes to discharge planning, she is reality focused and future oriented indicating that she will work diligently with the [employer] team as well as her professors at [employer] to get caught up and to get whatever credit she can salvage from this fallester. She is willing to follow up with both the [facility] and also her psychiatrist, Dr. Jayme Healy, in [place], [place]. The patient meets criteria at this point to receive treatment in a less restrictive setting. MENTAL STATUS EXAM: At the time of discharge, the patient is a young white female with long curly hair and eyeglasses. She is wearing causal clothing and her grooming is intact. There is no evidence of abnormal movements. Speech is notable for a rate, tone and volume, which are all within normal parameters. Mood is euthymic with a full affect. Thought process is linear and goal- directed. Thought content is significant for her reasonable concerns about getting academically caught up at the end of the semester. She is denying suicidal or homicidal ideations. There is no evidence of grandiose delusion. She denies auditory or visual hallucinations. Insight and judgement are fair given her willingness to follow up with outpatient treatment. Cognitively, she is awake and alert what would appear to be a slightly high average intellect given her academic history. DISCHARGE DIAGNOSES: Are as follows: A. Medications: 1. The patient is to take Depakote ER 1250 mg p.o. q.h.s. 2. She is also taking Geodon 160 mg p.o. q.h.s. 3. Benadryl 50 mg as needed for anxiety or insomnia. B. Diet is regular. C. Activity as tolerated. The patient is a nonsmoker. There are no diagnostic studies pending at the time of discharge. D. Followup care: The patient will be seen on 02/17/17, at the [facility]. There, she will receive both psychotherapy and psychopharmacologic management. Upon returning to [place], she will be following up with private psychiatrist, Jayme Healy , and her mother indicates that she will make this appointment. 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 Apparently, the patient was just discharged from the behavioral science unit on 02/01/17 and earlier on the date of admission, she was found on a bridge on the property of [facility], where she was observed to be yelling and singing loudly putting stickers on a foot bridge railing. The patient was aggressive towards the apprehending officers using vulgarity and acting in a bizarre fashion. She continued with these behaviors and aggressiveness in our emergency room resulting in the administration of p.r.n. stat medications. It is not appearing at the time of admission that she had the ability to make rationale decisions in order to care for herself or keep herself safe. When she was transferred back on to the inpatient unit, she continued to rapidly pace stating "I need to be released because I took the voluntary verbal order and I know that it is none of your business, so I am going to leave no matter what." Her thought process was clearly tangential and grandiose. At one point, she stated "I am a professional [place] and I cannot be here tomorrow. I am going on a field trip and it is special." She was hyperverbal and pressured, loud and hostile. She began to antagonize the peers, becoming upset and shouting "I am trying to help them that is my right because you have oppressed them and locked them in here." She declined her bedtime Depakote ER dose on the initial night of admission stating "I need to leave to get my own Depakote because the stuff you are giving me is poison." Later she was given a stat order of Benadryl, Haldol, and Ativan all through intramuscular injection. On the morning when I met her, she continued to be hostile threatening to bere me. She was clearly hyperverbal , distractible, grandiose with flight of ideas and over talkativeness as well as difficulty sleeping. She presented with florid manic symptoms and clearly required further hospitalization. Part B: Psychiatric treatment rendered: The patient was readmitted to the adult behavioral health unit where she was placed on q.30-minute checks for her own safety. On at least two other occasions, she required stat IM medications for agitation mostly related to getting involved with poor boundaries when other peers were acting out. During these episodes, she would become agitated insisting that she was standing up for the right of her peers and not being able to restrain herself from getting involved. We were able to reach out to her mother, whose name is Hilaria, who is a resident of [place], [place]. Hilaria indicated that the patient has done well when having Geodon added to her Depakote in the past. It should be noted that her Depakote level was therapeutic upon readmission indicating that she had been compliant with this following discharge. At any rate, we initiated Geodon at the low dose of 40 mg nightly and steadily titrated this up to the final effective dose of 160 mg nightly. I did place a call to her outpatient psychiatrist, Dr. Jayme Healy, at [facility]. However, that phone call was never returned. At any rate with the introduction of Geodon, the patient became progressively more euthymic. Even when other peers would act out, she resisted the temptation to get involved spending more time in appropriate therapeutic pursuit such as journaling and trying to catch up with school work. She became euthymic on the weekend just prior to discharge and was notable for her normal speech pattern and ability to plan for the future. Her mother, Hilaria, was contacted on the date of discharge and she was in support of the discharge plan. At this point, a friend of hers from college is going to be picked up and she is going to work with a canvass manager named Sharonda Waters on the staff of [employer] in order to contact all of her professors to get caught up at the end of the semester. At this point, we feel that she is appropriate to receive treatment in a less restrictive setting and we certainly wish her the best for healthy and safety. [id number]/[facility] #: [id number] MTDD
== END 2017-02-15 12:45 | disposition home or self-care (01) | DRG 885 ==
LOC: ED 13:56 → BSU 20:29
PROVIDERS: ADMIT Psychiatry & Neurology Psychiatry; ATTEND Psychiatry & Neurology Psychiatry
DX: F31.2 Bipolar disorder, current episode manic severe with psychotic features (principal); I10 Essential (primary) hypertension; G47.419 Narcolepsy without cataplexy; F12.10 Cannabis abuse, uncomplicated; Z79.899 Other long term (current) drug therapy
CPT/HCPCS: 36415; 80053; 80164; 80307; 80320; 80329; 81003; 84443; 84702; 85025; 90853; 99222; 99231; 99238; A9270-GY; G0480; J1200; J1630; J2060

== ENCOUNTER 2017-02-19 09:42 | Inpatient (IN) | payer OTHER ==
[2017-02-19] MEDS ORDERED: Haloperidol INJ IV/IM* 5 MG/ML AMP IM ONE (10:11)
[2017-02-19] MEDS ORDERED: Haloperidol INJ IV/IM* 5 MG/ML AMP ONE (10:12)
[2017-02-19] MEDS ORDERED: diPHENhydraMINE IV* 50 MG/ML 1 ml VIAL (BENADRYL) IM ONE (10:13)
[2017-02-19] MEDS ORDERED: LORazepam INJ* 2 MG/ML 1 ML VIAL IM ONE ×2 (10:13→10:25)
[2017-02-19] MEDS ORDERED: diPHENhydraMINE IV* 50 MG/ML 1 ml VIAL (BENADRYL) ONE (10:14)
[2017-02-19] MEDS ORDERED: LORazepam INJ* 2 MG/ML 1 ML VIAL ONE (10:14)
--- NOTE | 2017-02-19 12:14 | ED ---
Psychiatric Complaint - HPI Summary HPI Summary: 21 female brought in by [place] police for a mental health evaluation. Patient was very upset and agitated upon arrival. Very difficult to obtain history due to patient's frustration. Denies alcohol and drug use. States she has been taking her medications and this is all because her mother called the polo coach on her. 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 States she is filing multiple law suites against the hospital. Also asked for me to get out of her room. She was non-compliant, screaming, and trying to leave emergency room. Difficult to obtain further history. Denies complaints and stated she was fine. Denies suicidal/homicidal thoughts. - History Of Current Complaint Chief Complaint: EDMentalHealth Time Seen by Provider: 02/19/17 09:44 Hx Obtained From: Patient Hx From Patient Unobtainable Due To: Other - agitation, mood disorder Hx Last Menstrual Period: unknown ?: No Onset/Duration: Sudden Onset Character: Manic, Angry, Frustrated Aggravating Factor(s): Recent Stress Associated Signs And Symptoms: Positive: Hostile Related History: Positive For: Prior Psychiatric Issues Has Suicidal: Denies: Thoughts, With A Plan Has Homicidal: Denies: Thoughts, With A Plan - Allergies/Home Medications Allergies/Adverse Reactions: Allergies Allergy/AdvReac Type Severity Reaction Status Date / Time No Known Allergies Allergy Verified 02/19/17 15:34 PMH/Surg Hx/FS Hx/Imm Hx Endocrine/Hematology History: Denies: Hx Diabetes Cardiovascular History: Reports: Hx Hypertension Respiratory History: Denies: Hx Asthma Sensory History: Reports: Hx Contacts or Glasses Denies: Hx Cataracts, Hx Eye Injury, Hx Eye Prosthesis, Hx Glaucoma, Hx Legally Blind, Hx Macular Degeneration, Hx Vision Problem, Hx Deafness, Hx Hearing Aid, Hx Hearing Problem, Other Sensory Impairments Opthamlomology History: Reports: Hx Contacts or Glasses Denies: Hx Cataracts, Hx Eye Injury, Hx Eye Prosthesis, Hx Glaucoma, Hx Legally Blind, Hx Macular Degeneration, Hx Vision Problem, Other Sensory Impairments Neurological History: Reports: Other Neuro Impairments/Disorders - Narcolepsy Psychiatric History: Reports: Hx Inpatient Treatment, Hx Bipolar Disorder, Hx of Violent Episodes Against Others Denies: Hx Eating Disorder - Surgical History Surgery Procedure, Year, and Place: tonsilectomy age 6 Hx Anesthesia Reactions: No - Immunization History Immunizations Up to Date: Yes Infectious Disease History: No Infectious Disease History: Denies: Hx Clostridium Difficile, Hx Hepatitis, Hx Human Immunodeficiency Virus (HIV), Hx of Known/Suspected MRSA, Hx Shingles, Hx Tuberculosis, Traveled Outside the [place] in Last 30 Days - Family History Known Family History: Positive: Hypertension, Other - depression, hypomania - Social History Alcohol Use: None Alcohol Amount: "recovering addict" Substance Use Type: Reports: None Smoking Status (MU): Never Smoked Tobacco Have You Smoked in the Last Year: No Review of Systems Constitutional: Negative Cardiovascular: Negative Respiratory: Negative Gastrointestinal: Negative Musculoskeletal: Negative Skin: Negative Neurological: Negative Positive: Other - frustrated, agitated All Other Systems Reviewed And Are Negative: Yes Physical Exam Triage Information Reviewed: Yes Vital Signs On Initial Exam: Initial Vitals Resp 24 02/19/17 10:16 BP: 108/61 Pulse: 81 O2: 99 Temp: 97.6 Vital Signs Reviewed: Yes Appearance: Positive: No Pain Distress - visibily frustrated, screaming, Well- Nourished Skin: Positive: Warm, Skin Color Reflects Adequate Perfusion, Dry Head/Face: Positive: Normal Head/Face Inspection Eyes: Positive: Normal, Conjunctiva Clear ENT: Positive: Normal ENT inspection, Hearing grossly normal Neck: Positive: Supple, Nontender Respiratory/Lung Sounds: Positive: Clear to Auscultation, Breath Sounds Present. Negative: Rales, Rhonchi, Wheezes Cardiovascular: Positive: Normal, RRR, Pulses are Symmetrical in both Upper and Lower Extremities Abdomen Description: Positive: Nontender Bowel Sounds: Positive: Present Musculoskeletal: Positive: Normal, Strength/ROM Intact Neurological: Positive: Normal, Sensory/Motor Intact, Alert, Oriented to Person Place, Time Psychiatric: Positive: Other - extremely agitated and agressive, attempted to calm however patient did not want to cooperate, limited history or physical, Patient Uncooperative for Exam AVPU Assessment: Alert - [place] Coma Scale Best Eye Response: 4 - Spontaneous Best Motor Response: 6 - Obeys Commands Best Verbal Response: 5 - Oriented Coma Scale Total: 14 Diagnostics - Vital Signs Vital Signs Temp Pulse Resp BP Pulse Ox 02/19/17 11:03 97 F 109 18 123/62 99 02/19/17 10:38 24 02/19/17 10:16 24 - Laboratory Result Diagrams: 02/20/17 08:10 02/20/17 08:10 Lab Statement: Any lab studies that have been ordered have been reviewed, and results considered in the medical decision making process. Course/Dx - Course Course Of Treatment: patient was mediated IM and had to be restrained due to aggressiveness and agitation. patient was being very uncooperative. monitored while on IM medication of ativan, benedryl and haldol. medically cleared once able to obtain lab work. mental health eval. will be admitted with mood disorder NOS, Dr Meneses. - Differential Dx/Clinical Impression Differential Diagnosis/HQI/PQRI: Positive: Acute Psychosis, Bipolar Disorder, Schizophrenia, Other Provider Diagnosis: Mood disorder, Psychosis, Bipolar disorder - Physician Notifications Discussed Care Of Patient With: GILMA and Dr Meneses accepted admission Instructed by Provider To: Admit As Inpatient Patient Is Medically Stable For: Psych Evaluation Discharge - Discharge Plan Condition: Stable Disposition: ADMITTED TO [facility]
[2017-02-19] MEDS ORDERED: Al Hydrox/Mg Hydrox/Simet LIQ* 30 ML UDC PO PRN (13:52)
[2017-02-19] MEDS ORDERED: Acetaminophen TAB* 325 MG PO PRN (13:52)
[2017-02-19] MEDS ORDERED: diPHENhydraMINE PO* 50 MG PO PRN (13:54)
[2017-02-19] MEDS ORDERED: LORazepam TAB(*) 1 MG PO PRN (13:55)
[2017-02-19] MEDS ORDERED: Haloperidol TAB* 5 MG PO PRN (13:55)
[2017-02-19] MEDS: Divalproex ER TAB(*) 500 MG PO SCH (20:39)
[2017-02-19] MEDS: Divalproex ER TAB(*) 250 MG PO SCH (20:39)
[2017-02-19] MEDS: Ziprasidone CAP* 80 MG PO SCH (20:39)
[2017-02-19] MEDS ORDERED: Divalproex ER TAB(*) 500 MG PO SCH (21:00)
[2017-02-20 08:34] LABS: Hematocrit 41 % (35-47); Hemoglobin 13.4 g/dl (12.0-16.0); Mean Corpuscular HGB Conc 33 g/dl (31-36); Mean Corpuscular Hemoglobin 28 pg (27-31); Mean Corpuscular Volume 87 fL (80-97); Mean Platelet Volume 11 um3 (7.4-10.4); Red Blood Count 4.73 10^6/ul (4.0-5.4); Red Cell Distribution Width 14 % (10.5-15); White Blood Count 7.3 10^3/ul (3.5-10.8)
[2017-02-20 08:45] LABS: ALT 15 U/L (7-52); AST 41 U/L (13-39); Albumin 4.3 g/dL (3.2-5.2); Alkaline Phosphatase 47 U/L (34-104); Anion Gap 9 mmol/L (2-11); BUN/Creatinine Ratio 12.2 (8-20); Blood Urea Nitrogen 12 mg/dL (6-24); CO2 Carbon Dioxide 23 mmol/L (22-32); Calcium 9.4 mg/dL (8.6-10.3); Chloride 107 mmol/L (101-111); EGFR African American 90.4 (>60); EGFR Non-African American 70.3 (>60); Glucose 96 mg/dL (70-100); Potassium 4.1 mmol/L (3.5-5.0); Sodium 139 mmol/L (133-145); Total Protein 7.3 g/dL (6.4-8.9)
[2017-02-20 09:05] LABS: Acetaminophen < 15 mcg/mL; Alcohol < 10 mg/dL (<10); Salicylate < 2.50 mg/dL (<30)
[2017-02-20 09:15] LABS: TSH (Thyroid Stimulating Horm) 2.53 mcIU/mL (0.34-5.60)
[2017-02-20] MEDS: Vitamin THERAPEUTIC TAB PO SCH (10:00)
--- NOTE | 2017-02-20 15:16 | ADMNOTE ---
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 She asserts that she felt well after discharge, was adherent with taking prescribed meds and keeping therapy appointments. She denies recent substance abuse. She developed difficulty sleeping during night to Wednesday morning, was taken to [facility] by [facility] after being observed behaving erratically. She was transported to the ED here where she was agitated, screaming, attempting to leave and ignore hospital staff's attempts to de-escalate her. She was eventually restrained and secluded for dangerous agitation. She cites stresssors of breakup of relationship, strained relationship with her mother, academic stress and feeling homesick. Past Medical History: HTN; Narcolepsy; Lab Results: Laboratory Tests 02/20/17 02/20/17 08:10 08:10 WBC 7.3 RBC 4.73 Hgb 13.4 Hct 41 MCV 87 MCH 28 MCHC 33 RDW 14 Plt Count 211 MPV 11 H Neut % (Auto) 45.0 Lymph % (Auto) 43.9 [place] % (Auto) 9.1 H Eos % (Auto) 1.7 Baso % (Auto) 0.3 Absolute Neuts (auto) 3.3 Absolute Lymphs (auto) 3.2 Absolute Monos (auto) 0.7 Absolute Eos (auto) 0.1 Absolute Basos (auto) 0 Absolute Nucleated RBC 0 Nucleated RBC % 0.1 Sodium 139 Potassium 4.1 Chloride 107 Carbon Dioxide 23 Anion Gap 9 BUN 12 Creatinine 0.98 H Est GFR ( Amer) 90.4 Est GFR (Non-Af Amer) 70.3 BUN/Creatinine Ratio 12.2 Glucose 96 Calcium 9.4 Total Bilirubin 0.50 AST 41 H ALT 15 Alkaline Phosphatase 47 Total Protein 7.3 Albumin 4.3 Globulin 3.0 Albumin/Globulin Ratio 1.4 TSH 2.53 Beta HCG, Quant < 0.60 Salicylates < 2.50 Acetaminophen < 15 Serum Alcohol < 10 Exam Appearance: Healthy Appearing Hygiene: Normal Grooming: Fairly Well Kept Psychomotor Activities: Normal Exhibits Abnormal Movement: No Attitude and Relatedness: Irritable Eye Contact: Fair - Speech Quality: Unpressured Latencies: Normal Quantity: Appropriate Patient's Decription of Mood: "Upset" Observed Affect: Labile Affect Consistent with: Dysphoria Patient's Thought Process: Coherent, Goal Directed Thought Content: No Passive Wish, No Suicidal Planning, No Homicidal Ideation, No Paranoid Ideation Experiencing Hallucinations: No, Sensorium is Clear Level of Consciousness: Alert Orientation: Yes Intact Impulse Control: Intact Insight and Judgement: Impaired Impression - Impression Clinical Impression: 21yo female with history of bipolar disorder, readmitted about 4 days after previous discharge because of recurrence of symptoms of insomnia, irritability, mood lability, delusional thinking and erratic behavior. She needs continued inpatient level of care for stabilization. Merits Inpatient Hospitalization: Yes - [facility] Mental Illness: Bipolar disorder, current episode mised, severe, with psychotic features. Plan - Treatment Plan Continued Medication Management: Continue Outpt Medication Medications: Current Medications Acetaminophen (Tylenol Tab*) 650 mg PO Q4H PRN PRN Reason: for pain; or Temp >101 F Al Hydrox/Mg Hydrox/Simethicone (Maalox Plus*) 30 ml PO Q4H PRN PRN Reason: INDIGESTION Diphenhydramine HCl (Benadryl Po*) 50 mg PO Q6H PRN PRN Reason: AGITATION/ANXIETY/INSOMNIA Divalproex Sodium (Depakote Er Tab(*)) 1,000 mg PO BEDTIME [facility] Last Admin: 02/19/17 20:39 Dose: 1,000 mg Divalproex Sodium (Depakote Er Tab(*)) 250 mg PO BEDTIME [facility] Last Admin: 02/19/17 20:39 Dose: 250 mg Haloperidol (Haldol Tab*) 5 mg PO Q6H PRN PRN Reason: AGITATION/ANXIETY/INSOMNIA Lorazepam (Ativan Tab(*)) 2 mg PO Q6H PRN PRN Reason: AGITATION/ANXIETY/INSOMNIA Multivitamins (Theragran Tab*) 1 tab PO DAILY [facility] Last Admin: 02/20/17 10:00 Dose: Not Given Ziprasidone (Geodon Cap*) 160 mg PO BEDTIME [facility] Last Admin: 05/19/17 20:39 Dose: 160 mg - Discharge Plan Discharge Plan: Outpatient Follow Up Outpatient Program: Counseling/Psych Services at [place]
[2017-02-20] MEDS: Divalproex ER TAB(*) 250 MG PO SCH (20:57)
[2017-02-20] MEDS: Divalproex ER TAB(*) 500 MG PO SCH (20:57)
[2017-02-20] MEDS: Ziprasidone CAP* 80 MG PO SCH (20:58)
--- NOTE | 2017-02-20 22:33 | HP ---
HISTORY AND PHYSICAL ADDENDUM: DATE OF ADMISSION: 02/19/17 This is an addendum to the most recent history and physical from Dr. Ignacio Cho dated 02/05/17. 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 She was discharged in an improved condition with followup at [facility] on Depakote ER 1250 mg at bedtime, Geodon 160 mg daily, and clonazepam 1 mg daily as needed. The patient relates that following her discharge on Wednesday, she felt fine and was slowly resuming her activities at [employer]. She relates that current difficulty started on when she did not sleep all night. She woke up tearful, feeling homesick and the same morning, her boyfriend broke up with her and she was quite despondent. The patient said she went to the to get food and to meditate. When she got there, she realized that she forgot her student ID and she was getting ready to return to her room to retrieve her archer when she was approached by [employer] police who informed her that her mother had called to report her missing. [place] police took the patient to [place] to see her therapist, Dr. Prado. The patient became angry, agitated, started screaming in protest that all she needed was to get some food and then some sleep. She was transported to the emergency room of this hospital for mental health evaluation. The patient was angry, agitated, attempting to leave the emergency room, and she needed to be restrained and to be medicated IM for agitation. Today, when interviewed, she is tearful. She reports feeling fine. She complains that her mother is awful to her and is ruining her life by constantly calling from [place] to speak to her outpatient psychiatric providers. She denies manic symptoms. She reported that she slept well, although she was IM medicated. Denies racing thoughts or pressured speech. She was not overtly delusional. She asserts having been compliant with taking her prescribed medications. She denies recent substance abuse. She denies any new medical problems. PAST MEDICAL HISTORY: Significant for: 1. Hypertension. 2. Narcolepsy. FAMILY HISTORY: There is no known family history of mental illness or completed suicide. PHYSICAL EXAMINATION: The patient declined physical exam citing lack of need and the fact that she was discharged from this unit less than a week ago. MENTAL STATUS EXAMINATION: Finds a mildly to moderately obese 21-year-old white female with shoulder length curly hair, braided in a pony tail. She wears glasses. She is dressed partly in scrub and wearing shorts. She makes fair eye contact. She presents as tearful, highly distressed. She does not exhibit any abnormal movements or she is not highly agitated. Her speech is not pressured. Her affect is tearful. Mood is sad. Thoughts are linear and goal directed. No evidence of formal thought disorder. No overt delusions. She denies auditory or visual hallucinations. Insight and judgment are fair. Impulse control is good in this setting. She is alert. She is oriented to time , place, and person. Attention, memory, and concentration are all fair. Fund of knowledge is adequate. Intelligence is noted to be in the normal average range. SUMMARY: Readmission at close interval for this 21-year-old female with history of bipolar disorder, 3 previous inpatient psychiatric admissions, outpatient care at [facility], who was brought back by [place] police from [facility] less than 4 days after previous discharge because of concern that she had quickly decompensated. She asserts having been adherent to taking prescribed medication, keeping therapy appointment, and she denies recent substance abuse. Her medical history is remarkable for narcolepsy and hypertension. Her labs on admission were negative for any of the tested substances. The patient described stressors of breakup of relationship with boyfriend, home sickness, periodically strained relationship with her mother, and academic stress. The patient merits inpatient level of care at this point given her rapid decompensation and her inability to function in a more restrictive setting. TREATMENT PLAN: Admit to mental health unit, 15-minute checks, full code status. Legal status is emergency. Initiate comprehensive milieu, individual, and group psychotherapeutic support. Medication management will involve continuation of her Depakote ER 1250 mg h.s., Geodon 160 mg daily, and Benadryl 50 mg as needed for anxiety and insomnia. Discharge planning will involve coordination of her aftercare with [facility]. Target symptoms are manic symptoms including insomnia and mood lability and delusional thinking. LENGTH OF STAY: 3 to 5 days. CRITERIA FOR DISCHARGE: She will neither be manic nor psychotic. She will be compliant with prescribed medication. She will agree to adhere fully to recommendation for continued outpatient psychiatric treatment. There will be objective improvement in her presenting psychiatric symptoms. [id number]/[facility] #: [id number] MAYRA
--- NOTE | 2017-02-21 08:16 | PN ---
Subjective - Subjective Service Type: 36116 Hosp care 15 min low complexity Subjective: Reports feeling sleepy and wanting to return home to her mother. After an admission for bipolar disorder and discharge 02/15 she was was brought to the ER several days later due to lack of sleep and agitation. She is calm now but with poor insight and does hope to have outpatient care at home eventually. Objective - Appearance Appearance: Well Developed/Nourished, Healthy Appearing Dysmorphic Features: No Hygiene: Normal Grooming: Well Kept - Behavior Psychomotor Activities: Normal Exhibits Abnormal Movement: No - Attitude and Relatedness Attitude and Relatedness: Minimally Cooperative Eye Contact: Fair - Speech Quality: Unpressured Latencies: Normal Quantity: Appropriate - Mood Patient's Decription of Mood: "Sad" - Affect Observed Affect: Constricted Affect Consistent with: Dysphoria - Thought Process Patient's Thought Process: Circumstantial Thought Content: No Passive Wish, No Suicidal Planning, No Homicidal Ideation, No Paranoid Ideation - Sensorium Experiencing Hallucinations: No, Sensorium is Clear Type of Hallucinations: Visual: No, Auditory: No, Command: No - Level of Consciousness Level of Consciousness: Alert Orientation: Yes Intact, Yes Orientated to Time, Yes Orientated to Place, Yes Orientated to Person - Impulse Control Impulse Control: Impaired - Insight and Judgement Insight and Judgement: Poor - Group Participation Particating in Group Activities: Yes - Medication Management Medication Management Adherence: Yes Assessment - Assessment Merits Inpatient Hospitalization: For Immediate Safety, For Stabilization, Consolidate Improvements, For Discharge Planning Inpatient DSM-IV Dx: Bipolar Disorder Mixed without psychosis Clinical Impression: Slowly resolving bipolar disorder needing more inpatient stabilization and then a more supportive setting such as family after discharge. Plan - Plan Treatment Plan: Name: DANIA ERWIN Birthdate: 1995 [id number] Continued Medication Management: Continue Outpt Medication Medications: Current Medications Acetaminophen (Tylenol Tab*) 650 mg PO Q4H PRN PRN Reason: for pain; or Temp >101 F Al Hydrox/Mg Hydrox/Simethicone (Maalox Plus*) 30 ml PO Q4H PRN PRN Reason: INDIGESTION Diphenhydramine HCl (Benadryl Po*) 50 mg PO Q6H PRN PRN Reason: AGITATION/ANXIETY/INSOMNIA Divalproex Sodium (Depakote Er Tab(*)) 1,000 mg PO BEDTIME LYUDMILA Last Admin: 02/20/17 20:57 Dose: 1,000 mg Divalproex Sodium (Depakote Er Tab(*)) 250 mg PO BEDTIME L[facility]MILA Last Admin: 02/20/17 20:57 Dose: 250 mg Haloperidol (Haldol Tab*) 5 mg PO Q6H PRN PRN Reason: AGITATION/ANXIETY/INSOMNIA Lorazepam (Ativan Tab(*)) 2 mg PO Q6H PRN PRN Reason: AGITATION/ANXIETY/INSOMNIA Multivitamins (Theragran Tab*) 1 tab PO DAILY LYUDMILA Last Admin: 02/20/17 10:00 Dose: Not Given Ziprasidone (Geodon Cap*) 160 mg PO BEDTIME LYUDMILA Last Admin: 02/20/17 20:58 Dose: 160 mg - Discharge Plan Discharge Plan: Outpatient Follow Up Outpatient Program: at home
[2017-02-21] MEDS: Vitamin THERAPEUTIC TAB PO SCH (10:03)
[2017-02-21] MEDS: Divalproex ER TAB(*) 250 MG PO SCH (21:29)
[2017-02-21] MEDS: Ziprasidone CAP* 80 MG PO SCH (21:29)
[2017-02-21] MEDS: Divalproex ER TAB(*) 500 MG PO SCH (21:29)
[2017-02-22] MEDS: Vitamin THERAPEUTIC TAB PO SCH (09:31)
--- NOTE | 2017-02-22 11:05 | PN ---
Subjective - Subjective Service Type: 24159 Hosp care 25 min moderate complexity Subjective: Niya reports today that she would like to go home. She does not feel that she is manic or psychotic, and therefore she does not feel that she needs inpatient psychiatric care. She says that she was only getting out her emotions. She says that Dr. Prado at [facility] did not understand this. She says that staff in the [facility] were incredibly rude, and her behavior interpreted as so agitated as to require physical and medical restraint was again everardo expressing her upset, not symptomatic of an exacerbation of her bipolar illness. She reports that she was well from discharge Wednesday to night, when she could not sleep because she was homesick, and that when [employer] approached her at the request of her mother and put her on the phone with her mother after her mother has reported her as a missing person, she was very upset by this. She summed up her exegesis of her situation as "I know this is all part of God's plan." Objective - Appearance Appearance: Well Developed/Nourished Dysmorphic Features: No Hygiene: Normal Grooming: Fairly Well Kept - Behavior Psychomotor Activities: Normal Exhibits Abnormal Movement: No - Attitude and Relatedness Attitude and Relatedness: Cooperative Eye Contact: Good - Speech Quality: Unpressured Latencies: Normal Quantity: Copious - Mood Patient's Decription of Mood: "It's just fine as it has been" - Affect Observed Affect: Depressed Affect Consistent with: Dysphoria - Thought Process Patient's Thought Process: Coherent, Goal Directed, Circumstantial Thought Content: No Passive Wish, No Suicidal Planning, No Homicidal Ideation, No Paranoid Ideation - Sensorium Experiencing Hallucinations: No, Sensorium is Clear Type of Hallucinations: Visual: No, Auditory: No, Command: No - Level of Consciousness Level of Consciousness: Alert Orientation: Yes Intact, Yes Orientated to Time, Yes Orientated to Place, Yes Orientated to Person - Impulse Control Impulse Control: Tenuous - Insight and Judgement Insight and Judgement: Poor - Group Participation Particating in Group Activities: No - Medication Management Medication Management Adherence: Yes Assessment - Assessment Merits Inpatient Hospitalization: For Immediate Safety, For Stabilization, For Ongoing Evaluation, For Discharge Planning, Pending Safe DC Plan Inpatient DSM-IV Dx: Bipolar Disorder Mixed without psychosis Clinical Impression: Elicia Rocha is a 21-year-old single woman in her megan year at [employer]. She has been readmitted 4 days following her last discharge. This will be her 4th admission here in recent weeks. Her version of events leading to this readmission is simply that she was upset and venting emotions. She does not demonstrate insight into the role played by her bipolar disorder. Consideration is being made for the possibility of long-term care for clifford stabilization given her repeated readmissions. Plan - Plan Treatment Plan: Name: ELICIA ROCHA Birthdate: 1995 [id number] Continue Depakote and Geodon. Consider State Hospitalization for long-term care given multiple decompensations and readmissions. Encourage groups and milieu. Medications: Current Medications Acetaminophen (Tylenol Tab*) 650 mg PO Q4H PRN PRN Reason: for pain; or Temp >101 F Al Hydrox/Mg Hydrox/Simethicone (Maalox Plus*) 30 ml PO Q4H PRN PRN Reason: INDIGESTION Diphenhydramine HCl (Benadryl Po*) 50 mg PO Q6H PRN PRN Reason: AGITATION/ANXIETY/INSOMNIA Divalproex Sodium (Depakote Er Tab(*)) 1,000 mg PO BEDTIME LYUDMILA Last Admin: 02/21/17 21:29 Dose: 1,000 mg Divalproex Sodium (Depakote Er Tab(*)) 250 mg PO BEDTIME LYUDMILA Last Admin: 02/21/17 21:29 Dose: 250 mg Haloperidol (Haldol Tab*) 5 mg PO Q6H PRN PRN Reason: AGITATION/ANXIETY/INSOMNIA Lorazepam (Ativan Tab(*)) 2 mg PO Q6H PRN PRN Reason: AGITATION/ANXIETY/INSOMNIA Multivitamins (Theragran Tab*) 1 tab PO DAILY LYUDMILA Last Admin: 02/22/17 09:31 Dose: 1 tab Ziprasidone (Geodon Cap*) 160 mg PO BEDTIME LYUDMILA Last Admin: 02/21/17 21:29 Dose: 160 mg - Discharge Plan Discharge Plan: Consider Longer Term Tx
[2017-02-22] MEDS: Divalproex ER TAB(*) 500 MG PO SCH (21:07)
[2017-02-22] MEDS: Ziprasidone CAP* 80 MG PO SCH (21:07)
[2017-02-22] MEDS: Divalproex ER TAB(*) 250 MG PO SCH (21:07)
[2017-02-23] MEDS: Vitamin THERAPEUTIC TAB PO SCH (09:37)
--- NOTE | 2017-02-23 11:33 | PN ---
[facility]: Group Therapy Note - Service Type Service Type: 38971 Group Psychotherapy - Cognitive Behavioral Group Therapy ( CBT):Patient was attentive and participatory in CBT programming this morning, and remained in good behavioral control. Patient expressed positive insights regarding relevant treatment interventions and goals.
--- NOTE | 2017-02-23 15:26 | PN ---
Subjective - Subjective Service Type: 14451 Hosp care 25 min moderate complexity Subjective: Niya reports that she has come to terms with win and bipolar illness. She states she will maintain abstinence from all substances of abuse. She reports that she had onset of win after taking hallucinogens from [facility] called 25c and 25i. She reports that she intends never to take hallucinogens again. She reports that her family is aware of the hallucinogen use as the trigger to her mental illness. She would like to discharge before the weekend so that she can make preparations for her mother who is coming here Wednesday. She plans to be in therapy with her psychiatrist in [place], [place], twice weekly after returning home. Recreational therapist Anamaria noted on treatment team that Niya was unable to focus in her group yesterday. transplant worker Juana Napoles reports that Niya was hyperverbal when they met yesterday. Objective - Appearance Appearance: Healthy Appearing Dysmorphic Features: No Hygiene: Normal Grooming: Well Kept - Behavior Psychomotor Activities: Normal Exhibits Abnormal Movement: No - Attitude and Relatedness Attitude and Relatedness: Cooperative Eye Contact: Good - Speech Quality: Pressured Latencies: Normal Quantity: Copious - Mood Patient's Decription of Mood: "Good, real good, real balanced, really relaxed, trying to enjoy group." - Affect Observed Affect: Fair - but with a feeling of effortful constriction of an underlying expansive mood Affect Consistent with: Euthymia - Thought Process Patient's Thought Process: Coherent, Goal Directed, Circumstantial Thought Content: No Passive Wish, No Suicidal Planning, No Homicidal Ideation, No Paranoid Ideation - Sensorium Experiencing Hallucinations: No, Sensorium is Clear Type of Hallucinations: Visual: No, Auditory: No, Command: No - Level of Consciousness Level of Consciousness: Alert Orientation: Yes Intact, Yes Orientated to Time, Yes Orientated to Place, Yes Orientated to Person - Impulse Control Impulse Control: Intact - Insight and Judgement Insight and Judgement: Poor - Group Participation Particating in Group Activities: Yes - Medication Management Medication Management Adherence: Yes Assessment - Assessment Merits Inpatient Hospitalization: For Stabilization, For Discharge Planning, Pending Safe DC Plan Inpatient DSM-IV Dx: Bipolar Disorder Mixed without psychosis Clinical Impression: Elicia Rocha is a 21-year-old single woman in her megan year at [employer]. She has been readmitted 4 days following her last discharge. This will be her 4th admission here in recent weeks. Her version of events leading to this readmission is simply that she was upset and venting emotions. She does not demonstrate insight into the role played by her bipolar disorder. Consideration is being made for the possibility of long-term care for clifford stabilization given her repeated readmissions. 02.23.17 Niya reports that she has come to terms with her mental illness understood as bipolar disorder, with acceptance of the term win for its defining mental state. She asks for discharge to return home to care with her mother, with follow up planned with her outpatient provider in [place], [place]. She is med, group and meal compliant. She is markedly less intrusive and labile on this admission compared with past admissions. Plan - Plan Treatment Plan: Name: ELICIA ROCHA Birthdate: 1995 [id number] Continue Depakote and Geodon. Consider State Hospitalization for long-term care given multiple decompensations and readmissions, but with equal consideration for long-term care in the outpatient setting under supervision of parents as an option. Encourage groups and milieu. Medications: Current Medications Acetaminophen (Tylenol Tab*) 650 mg PO Q4H PRN PRN Reason: for pain; or Temp >101 F Al Hydrox/Mg Hydrox/Simethicone (Maalox Plus*) 30 ml PO Q4H PRN PRN Reason: INDIGESTION Diphenhydramine HCl (Benadryl Po*) 50 mg PO Q6H PRN PRN Reason: AGITATION/ANXIETY/INSOMNIA Divalproex Sodium (Depakote Er Tab(*)) 1,000 mg PO BEDTIME LYUDMILA Last Admin: 02/22/17 21:07 Dose: 1,000 mg Divalproex Sodium (Depakote Er Tab(*)) 250 mg PO BEDTIME LYUDMILA Last Admin: 02/22/17 21:07 Dose: 250 mg Haloperidol (Haldol Tab*) 5 mg PO Q6H PRN PRN Reason: AGITATION/ANXIETY/INSOMNIA Lorazepam (Ativan Tab(*)) 2 mg PO Q6H PRN PRN Reason: AGITATION/ANXIETY/INSOMNIA Multivitamins (Theragran Tab*) 1 tab PO DAILY LYUDMILA Last Admin: 02/23/17 09:37 Dose: 1 tab Ziprasidone (Geodon Cap*) 160 mg PO BEDTIME LYUDMILA Last Admin: 02/22/17 21:07 Dose: 160 mg - Discharge Plan Discharge Plan: Consider Longer Term Tx
[2017-02-23] MEDS: Ziprasidone CAP* 80 MG PO SCH (21:17)
[2017-02-23] MEDS: Divalproex ER TAB(*) 250 MG PO SCH (21:17)
[2017-02-23] MEDS: Divalproex ER TAB(*) 500 MG PO SCH (21:17)
[2017-02-23 22:09] LABS: Benzodiazepine Urine Screen None Detected (None Detect)
[2017-02-24] MEDS: Vitamin THERAPEUTIC TAB PO SCH (11:07)
--- NOTE | 2017-02-24 12:10 | PN ---
Subjective - Subjective Service Type: 89240 Hosp care 15 min low complexity Subjective: Niya reports her hip is still a little sore from IM injections, but 'it's ok'. She denies any psychosis or dangerous intent or plan. Juana Napoles has gathered from Niya's mother Hilaria that she is planning to bring Niya home for aftercare with her psychiatrist Dr Healy in [place]. Objective - Appearance Appearance: Well Developed/Nourished Dysmorphic Features: No Hygiene: Normal Grooming: Well Kept - Behavior Psychomotor Activities: Normal Exhibits Abnormal Movement: No - Attitude and Relatedness Attitude and Relatedness: Cooperative Eye Contact: Good - Speech Quality: Unpressured Latencies: Normal Quantity: Appropriate - Mood Patient's Decription of Mood: "Fine" - Affect Observed Affect: Good Affect Consistent with: Euthymia - Thought Process Patient's Thought Process: Coherent, Goal Directed Thought Content: No Passive Wish, No Suicidal Planning, No Homicidal Ideation, No Paranoid Ideation - Sensorium Experiencing Hallucinations: No, Sensorium is Clear Type of Hallucinations: Visual: No, Auditory: No, Command: No - Level of Consciousness Level of Consciousness: Alert Orientation: Yes Intact, Yes Orientated to Time, Yes Orientated to Place, Yes Orientated to Person - Impulse Control Impulse Control: Intact - Insight and Judgement Insight and Judgement: Poor - Group Participation Particating in Group Activities: Yes - Medication Management Medication Management Adherence: Yes Assessment - Assessment Merits Inpatient Hospitalization: For Stabilization, Consolidate Improvements, For Discharge Planning, Pending Safe DC Plan Inpatient DSM-IV Dx: Bipolar Disorder Mixed without psychosis Clinical Impression: Elicia Erwin is a 21-year-old single woman in her megan year at [employer]. She has been readmitted 4 days following her last discharge. This will be her 4th admission here in recent weeks. Her version of events leading to this readmission is simply that she was upset and venting emotions. She does not demonstrate insight into the role played by her bipolar disorder. Consideration is being made for the possibility of long-term care for clifford stabilization given her repeated readmissions. 02.23. Niya reports that she has come to terms with her mental illness understood as bipolar disorder, with acceptance of the term win for its defining mental state. She asks for discharge to return home to care with her mother, with follow up planned with her outpatient provider in [place], [place]. She is med, group and meal compliant. She is markedly less intrusive and labile on this admission compared with past admissions. 02.24.17 Niya continues to demonstrate good behavioral control on the unit. She denies any dangerous intent or plan. Her mother has a plan for her discharge home to [place]. We had given some consideration to long-term care in a state hospital due to multiple admissions for erratic behavior of win. As none of her decompensations included acute safety concerns beyond the potential for harm in the context of win without dangerous intent or plan, Niya's mother's plan seems tenable from the point of view of safety, though there remains increased risk of noncompliance with care outside an institutional setting, which could lead to yet another manic decompensation. Plan - Plan Treatment Plan: Name: ELICIA ERWIN Birthdate: 1995 [id number] Continue Depakote and Geodon, with good valproic acid level at 73. Consider State Hospitalization for long-term care given multiple decompensations and readmissions, but with equal consideration for long-term care in the outpatient setting under supervision of parents as an option. Encourage groups and milieu. Continued Medication Management: Continue Outpt Medication Medications: Current Medications Acetaminophen (Tylenol Tab*) 650 mg PO Q4H PRN PRN Reason: for pain; or Temp >101 F Al Hydrox/Mg Hydrox/Simethicone (Maalox Plus*) 30 ml PO Q4H PRN PRN Reason: INDIGESTION Diphenhydramine HCl (Benadryl Po*) 50 mg PO Q6H PRN PRN Reason: AGITATION/ANXIETY/INSOMNIA Divalproex Sodium (Depakote Er Tab(*)) 1,000 mg PO BEDTIME LYUDMILA Last Admin: 02/23/17 21:17 Dose: 1,000 mg Divalproex Sodium (Depakote Er Tab(*)) 250 mg PO BEDTIME LYUDMILA Last Admin: 02/23/17 21:17 Dose: 250 mg Haloperidol (Haldol Tab*) 5 mg PO Q6H PRN PRN Reason: AGITATION/ANXIETY/INSOMNIA Lorazepam (Ativan Tab(*)) 2 mg PO Q6H PRN PRN Reason: AGITATION/ANXIETY/INSOMNIA Multivitamins (Theragran Tab*) 1 tab PO DAILY [facility] Last Admin: 02/24/17 11:07 Dose: 1 tab Ziprasidone (Geodon Cap*) 160 mg PO BEDTIME LYUDMILA Last Admin: 02/23/17 21:17 Dose: 160 mg - Discharge Plan Discharge Plan: Outpatient Follow Up - Dr Healy in [place]
[2017-02-24] MEDS: Ziprasidone CAP* 80 MG PO SCH (20:45)
[2017-02-24] MEDS: Divalproex ER TAB(*) 500 MG PO SCH (20:45)
[2017-02-24] MEDS: Divalproex ER TAB(*) 250 MG PO SCH (20:45)
--- NOTE | 2017-02-25 08:51 | PN ---
Subjective - Subjective Service Type: 48307 Hosp care 15 min low complexity Subjective: Niya continues to report doing well, with no reports of manic behavior. She has no physical complaints. She asked for staff pass and increased use of the comfort room. Objective - Appearance Appearance: Well Developed/Nourished Dysmorphic Features: No Hygiene: Normal Grooming: Fairly Well Kept - Behavior Psychomotor Activities: Normal Exhibits Abnormal Movement: No - Attitude and Relatedness Attitude and Relatedness: Cooperative Eye Contact: Good - Speech Quality: Unpressured Latencies: Normal Quantity: Appropriate - Mood Patient's Decription of Mood: "Good" - - "and normal" - Affect Observed Affect: Fair Affect Consistent with: Euthymia - Thought Process Patient's Thought Process: Coherent, Goal Directed Thought Content: No Passive Wish, No Suicidal Planning, No Homicidal Ideation, No Paranoid Ideation - Sensorium Experiencing Hallucinations: No, Sensorium is Clear Type of Hallucinations: Visual: No, Auditory: No, Command: No - Level of Consciousness Level of Consciousness: Alert Orientation: Yes Intact, Yes Orientated to Time, Yes Orientated to Place, Yes Orientated to Person - Impulse Control Impulse Control: Intact - Insight and Judgement Insight and Judgement: Fair - Group Participation Particating in Group Activities: Yes - Medication Management Medication Management Adherence: Yes Assessment - Assessment Merits Inpatient Hospitalization: Consolidate Improvements, For Discharge Planning, Pending Safe DC Plan Inpatient DSM-IV Dx: Bipolar Disorder Mixed without psychosis Clinical Impression: Elicia Rocha is a 21-year-old single woman in her megan year at [employer]. She has been readmitted 4 days following her last discharge. This will be her 4th admission here in recent weeks. Her version of events leading to this readmission is simply that she was upset and venting emotions. She does not demonstrate insight into the role played by her bipolar disorder. Consideration is being made for the possibility of long-term care for clifford stabilization given her repeated readmissions. 02.23.17 Niya reports that she has come to terms with her mental illness understood as bipolar disorder, with acceptance of the term win for its defining mental state. She asks for discharge to return home to care with her mother, with follow up planned with her outpatient provider in [place], [place]. She is med, group and meal compliant. She is markedly less intrusive and labile on this admission compared with past admissions. 02.24.17 Niya continues to demonstrate good behavioral control on the unit. She denies any dangerous intent or plan. Her mother has a plan for her discharge home to [place]. We had given some consideration to long-term care in a state hospital due to multiple admissions for erratic behavior of win. As none of her decompensations included acute safety concerns beyond the potential for harm in the context of win without dangerous intent or plan, Niya's mother's plan seems tenable from the point of view of safety, though there remains increased risk of noncompliance with care outside an institutional setting, which could lead to yet another manic decompensation. 5.25.17 Niya continues to demonstrate good behavioral control without signs of ongoing manic symptoms. She asked today for staff pass and comfort room privileges to be somehow increased. She has come back to the hospital within days of her prior 3 admissions, so a disposition that will reduce the risk of yet another rapid readmission is being pursued. This may be going home to [place] with her mother for follow-up care there. Plan - Plan Treatment Plan: Name: ELICIA ROCHA Birthdate: 1995 [id number] Continue Depakote and Geodon, with good valproic acid level at 73. Consider State Hospitalization for long-term care given multiple decompensations and readmissions, but with equal consideration for long-term care in the outpatient setting under supervision of parents as an option. Encourage groups and milieu. Medications: Current Medications Acetaminophen (Tylenol Tab*) 650 mg PO Q4H PRN PRN Reason: for pain; or Temp >101 F Al Hydrox/Mg Hydrox/Simethicone (Maalox Plus*) 30 ml PO Q4H PRN PRN Reason: INDIGESTION Diphenhydramine HCl (Benadryl Po*) 50 mg PO Q6H PRN PRN Reason: AGITATION/ANXIETY/INSOMNIA Divalproex Sodium (Depakote Er Tab(*)) 1,000 mg PO BEDTIME LYUDMILA Last Admin: 02/24/17 20:45 Dose: 1,000 mg Divalproex Sodium (Depakote Er Tab(*)) 250 mg PO BEDTIME LYUDMILA Last Admin: 02/24/17 20:45 Dose: 250 mg Haloperidol (Haldol Tab*) 5 mg PO Q6H PRN PRN Reason: AGITATION/ANXIETY/INSOMNIA Lorazepam (Ativan Tab(*)) 2 mg PO Q6H PRN PRN Reason: AGITATION/ANXIETY/INSOMNIA Multivitamins (Theragran Tab*) 1 tab PO DAILY LYUDMILA Last Admin: 02/24/17 11:07 Dose: 1 tab Ziprasidone (Geodon Cap*) 160 mg PO BEDTIME [facility] Last Admin: 02/24/17 20:45 Dose: 160 mg - Discharge Plan Discharge Plan: Outpatient Follow Up Outpatient Program: Private Clinician(s)
[2017-02-25] MEDS: Vitamin THERAPEUTIC TAB PO SCH ×2 (09:39→15:56)
[2017-02-25] MEDS ORDERED: LORazepam TAB(*) 1 MG PO PRN (10:04)
[2017-02-25] MEDS: Divalproex ER TAB(*) 250 MG PO SCH (21:17)
[2017-02-25] MEDS: Divalproex ER TAB(*) 500 MG PO SCH (21:17)
[2017-02-25] MEDS: Ziprasidone CAP* 80 MG PO SCH (21:18)
--- NOTE | 2017-02-26 08:07 | PN ---
Subjective - Subjective Service Type: 25089 Hosp care 15 min low complexity Subjective: Elicia reports continuing to do well, with stable good mood and no signs of any behavioral dyscontrol. She has told staff that she is glad for the benefits of spending time on the unit now. She is agreeable to going home to [place] with her mother on Wednesday night or Wednesday morning, with only mild regret now about not being able to spend time in her apartment alone for a few days. She asked me for staff pass. She has no physical complaints. Objective - Appearance Appearance: Well Developed/Nourished Dysmorphic Features: No Hygiene: Normal Grooming: Well Kept - Behavior Psychomotor Activities: Normal Exhibits Abnormal Movement: No - Attitude and Relatedness Attitude and Relatedness: Cooperative - Speech Quality: Unpressured Latencies: Normal Quantity: Appropriate - Mood Patient's Decription of Mood: "Good" - Affect Observed Affect: Good Affect Consistent with: Euthymia - Thought Process Patient's Thought Process: Coherent, Goal Directed Thought Content: No Passive Wish, No Suicidal Planning, No Homicidal Ideation, No Paranoid Ideation - Sensorium Experiencing Hallucinations: No, Sensorium is Clear Type of Hallucinations: Visual: No, Auditory: No, Command: No - Level of Consciousness Level of Consciousness: Alert Orientation: Yes Intact, Yes Orientated to Time, Yes Orientated to Place, Yes Orientated to Person - Impulse Control Impulse Control: Intact - Insight and Judgement Insight and Judgement: Fair - Group Participation Particating in Group Activities: Yes - Medication Management Medication Management Adherence: Yes Assessment - Assessment Merits Inpatient Hospitalization: Consolidate Improvements, For Discharge Planning Inpatient DSM-IV Dx: Bipolar Disorder Mixed without psychosis Clinical Impression: Elicia Rocha is a 21-year-old single woman in her megan year at [employer]. She has been readmitted 4 days following her last discharge. This will be her 4th admission here in recent weeks. Her version of events leading to this readmission is simply that she was upset and venting emotions. She does not demonstrate insight into the role played by her bipolar disorder. Consideration is being made for the possibility of long-term care for clifford stabilization given her repeated readmissions. 02.23.17 Niya reports that she has come to terms with her mental illness understood as bipolar disorder, with acceptance of the term win for its defining mental state. She asks for discharge to return home to care with her mother, with follow up planned with her outpatient provider in [place], [place]. She is med, group and meal compliant. She is markedly less intrusive and labile on this admission compared with past admissions. 5.24.17 Niya continues to demonstrate good behavioral control on the unit. She denies any dangerous intent or plan. Her mother has a plan for her discharge home to [place]. We had given some consideration to long-term care in a [facility] hospital due to multiple admissions for erratic behavior of win. As none of her decompensations included acute safety concerns beyond the potential for harm in the context of win without dangerous intent or plan, Niya's mother's plan seems tenable from the point of view of safety, though there remains increased risk of noncompliance with care outside an institutional setting, which could lead to yet another manic decompensation. 5.17 Niya continues to demonstrate good behavioral control without signs of ongoing manic symptoms. She asked today for staff pass and comfort room privileges to be somehow increased. She has come back to the hospital within days of her prior 3 admissions, so a disposition that will reduce the risk of yet another rapid readmission is being pursued. This may be going home to [place] with her mother for follow-up care there. 5..17 Niya continues to do well on the unit. I am now in favor of staff pass for her , as she has had no sign of behavioral dyscontrol through the course of her stay here, and is making good use of groups, and is agreeable to a reasonable discharge plan. I had reservations yesterday in thinking of prior episodes of impulsive behavior, but she gives no signs of that now. Planning for discharge with her mother Wednesday evening or Wednesday morning. Plan - Plan Treatment Plan: Name: ELICIA ROCHA Birthdate: 1995 [id number] Continue Depakote and Geodon, with good valproic acid level at 73. Treatment team and I have decided that long-term care in the outpatient setting under supervision of mother is her best option, and the plan is to discharge to that aftercare. Encourage groups and milieu. Medications: Current Medications Acetaminophen (Tylenol Tab*) 650 mg PO Q4H PRN PRN Reason: for pain; or Temp >101 F Al Hydrox/Mg Hydrox/Simethicone (Maalox Plus*) 30 ml PO Q4H PRN PRN Reason: INDIGESTION Diphenhydramine HCl (Benadryl Po*) 50 mg PO Q6H PRN PRN Reason: AGITATION/ANXIETY/INSOMNIA Divalproex Sodium (Depakote Er Tab(*)) 1,000 mg PO BEDTIME [facility] Last Admin: 02/25/17 21:17 Dose: 1,000 mg Divalproex Sodium (Depakote Er Tab(*)) 250 mg PO BEDTIME [facility] Last Admin: 02/25/17 21:17 Dose: 250 mg Haloperidol (Haldol Tab*) 5 mg PO Q6H PRN PRN Reason: AGITATION/ANXIETY/INSOMNIA Lorazepam (Ativan Tab(*)) 1 mg PO Q6H PRN PRN Reason: AGITATION/ANXIETY/INSOMNIA Multivitamins (Theragran Tab*) 1 tab PO DAILY [facility] Last Admin: 02/25/17 15:56 Dose: 1 tab Ziprasidone (Geodon Cap*) 160 mg PO BEDTIME [facility] Last Admin: 02/25/17 21:18 Dose: 160 mg - Discharge Plan Discharge Plan: Outpatient Follow Up Outpatient Program: Dr Healy in [place]
[2017-02-26] MEDS: Vitamin THERAPEUTIC TAB PO SCH (10:52)
[2017-02-26] MEDS: Divalproex ER TAB(*) 500 MG PO SCH (21:44)
[2017-02-26] MEDS: Divalproex ER TAB(*) 250 MG PO SCH (21:45)
[2017-02-26] MEDS: Ziprasidone CAP* 80 MG PO SCH (21:45)
[2017-02-27] MEDS: Vitamin THERAPEUTIC TAB PO SCH (09:44)
[2017-02-27] MEDS: Divalproex ER TAB(*) 500 MG PO SCH (20:58)
[2017-02-27] MEDS: Ziprasidone CAP* 80 MG PO SCH (20:58)
[2017-02-27] MEDS: Divalproex ER TAB(*) 250 MG PO SCH (20:58)
[2017-02-28] MEDS: Vitamin THERAPEUTIC TAB PO SCH (08:32)
--- NOTE | 2017-02-28 12:25 | DS ---
Subjective - Subjective Service Types: 99312 [facility] Day Mgmt simple under 30 min Discharge Date: 02/28/17 Subjective: Niya reports feeling safe and ready for discharge today. She has demonstrated good behavioral control with minimal signs of residual manic symptoms, occasionally noted by staff as having some pressure to her speech. She denies any dangerous intent or plan, and denies any psychotic symptoms. She tells me she is having no physical complaints. She reports sleeping well, which is important given her history of decompensation into win sensitively dependent on insomnia. We talked some more today about her psychiatric history. She has clarified that her first psychiatric hospitalization was following a week of abuse of the hallucinogen 25c, from 12.31.12 to ..13. She reports that she is grateful that her mother is so good at finding her good doctors, and is looking forward to going back to work with Jayme Healy MD. She says she likes working with him and trusts his judgment in guiding her care. She tells me that the situation with the man we have been thinking of as her boyfriend is stable, and they are mostly best friends, more so than being romantically related. She is overall calm, bright, future-oriented and in good behavioral control. Objective - Appearance Appearance: Healthy Appearing Dysmorphic Features: No Hygiene: Normal Grooming: Well Kept - Behavior Psychomotor Activities: Normal Exhibits Abnormal Movement: No - Attitude and Relatedness Attitude and Relatedness: Cooperative Eye Contact: Good - Speech Quality: Unpressured Latencies: Normal Quantity: Copious - as in loquacious on topic, not circumstantial - Mood Patient's Decription of Mood: "Good" - "Calm and ready to take on the day" - Affect Observed Affect: Fair Affect Consistent with: Euthymia - Thought Process Patient's Thought Process: Coherent, Goal Directed Thought Content: No Passive Wish, No Suicidal Planning, No Homicidal Ideation, No Paranoid Ideation - Sensorium Experiencing Hallucinations: No, Sensorium is Clear Type of Hallucinations: Visual: No, Auditory: No, Command: No - Level of Consciousness Level of Consciousness: Alert Orientation: Yes Intact, Yes Orientated to Time, Yes Orientated to Place, Yes Orientated to Person - Impulse Control Impulse Control: Intact - Insight and Judgement Insight and Judgement: Fair - Group Participation Particating in Group Activities: Yes - Medication Management Medication Management Adherence: Yes Treatment Course & Assessment Clinical Course & Impression: Elicia Rocha is a 21-year-old single woman in her megan year at [employer]. She was readmitted to this unit for the 4th time 4 days following her last discharge. Her version of events leading to this readmission was simply that she was upset and venting emotions. She did not demonstrate insight into the role played by her bipolar disorder. Consideration was initially made for the possibility of long-term care for clifford stabilization given her repeated readmissions. 5.17 Niya reports that she has come to terms with her mental illness understood as bipolar disorder, with acceptance of the term win for its defining mental state. She asks for discharge to return home to care with her mother, with follow up planned with her outpatient provider in [place], [place]. She is med, group and meal compliant. She is markedly less intrusive and labile on this admission compared with past admissions. 5.17 Niya continues to demonstrate good behavioral control on the unit. She denies any dangerous intent or plan. Her mother has a plan for her discharge home to [place]. We had given some consideration to long-term care in a [facility] hospital due to multiple admissions for erratic behavior of win. As none of her decompensations included acute safety concerns beyond the potential for harm from inadequate self-care in the context of win without dangerous intent or plan, Niya's mother's plan seems tenable from the point of view of safety, though there remains increased risk of noncompliance with care outside an institutional setting, which could lead to yet another manic decompensation. 5.17 Niya continues to demonstrate good behavioral control without signs of ongoing manic symptoms. She asked today for staff pass and increased comfort room privileges. 5..17 Niya continues to do well on the unit. I am now in favor of staff pass for her , as she has had no sign of behavioral dyscontrol through the course of her stay here, and is making good use of groups, and is agreeable to a reasonable discharge plan. I had reservations yesterday in thinking of prior episodes of impulsive behavior, but she gives no signs of that now. Planning for discharge with her mother Wednesday evening or Wednesday morning. 528.17 Niya is cleared for discharge from the unit tonight in the custody of her mother , who is on a plane here from [place]. 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 Niya has been in good behavioral control with minimal if any residual symptoms of win: some staff notes reflect her being hyperverbal, but she is interruptable , and she might be called loquacious instead of pressured, which could be a reasonable psychological defense in a woman managing some anxiety in anticipation of discharge from a run of hospitalizations for win. She voices a strong commitment to aftercare arranged by her mother. She will be meeting with her psychiatrist in [place], [place], Jayme Healy MD, twice weekly. She has agreed to have no car or money or other means to facilitate relapse to marijuana or other substances for at least the first 30 days after returning home. She says she feels that having no pressure to awaken at a given hour after a night of insomnia will be protective against recurrence of win, as her manic episodes have usually been triggered by insomnia in the context of academic obligations here. She clarified her history with me that her bipolar illness had onset after a 1 week run of abuse of the synthetic hallucinogen 25c that she obtained from [employer] sources. She is committed to complete sobriety from illicit substances after recognizing fully the negative impact of her hallucinogen experimentation. Niya has made good use of groups, and has been a calm presence on the milieu on this occasion, in sharp contrast to her agitated and confrontational stances on prior admissions. She reports having accepted her diagnosis and its descriptive labels. She reports having greater benefit of the therapeutic milieu and group programming here due to her acceptance of her need for help and letting go of her resistance to it. Niya is assessed as at no acute risk of harm to self or others, and capable of adequate self-care in the outpatient setting to avoid imminent harms. She will remain at elevated chronic risk of relapse to win with psychosis due to her history of relapse. She can reduce that chronic risk by adherence to her aftercare plan and attention to proper sleep hygiene to avoid insomnia. Her risk of insomnia-induced win is lower in the setting anticipated following discharge of no academic stress and freedom to sleep into the day if she has trouble falling asleep at night. She reports good sleep here. As she has never stated any intent or plan to harm herself, her risk of intentional self- harm is assessed as low both acutely and chronically. Niya reports having a good supply of medications at home from her last discharge from this unit, so says she will not need prescriptions sent in at discharge this time. She remains on Depakote ER 1250 mg and Geodon 160 mg nightly. Merits Inpatient Hospitalization: No Clear for Discharge: Adequate Clinical Respons, Acceptable Safety Profile, Low Utility of Inpt Care Inpatient DSM-IV Dx: Bipolar Disorder Mixed without psychosis, in early remission at discharge - [place] Mental Illness: Bipolar disorder, current episode mised, severe, with psychotic features. - [place] II MR and Personality Disorder: Deferred - [place] III Medical Illness: hypertension, narcolepsy - [place] IV Stressors: academics Family: strongly supportive mother Primary Support Group: mother - [place] V [id number]: 65 Estimate of Highest-Past Year: 75 Discharge Planning - Discharge Planning Discharge Plan: Outpatient Follow Up Outpatient Program: Private Clinician(s) - Dr Healy in [place], [place] Recommendations for Continuing Care: Medication Management, Psychotherapy, Substance Abuse Counseling Medications: Divalproex Sodium (Depakote Er Tab(*)) 1,000 mg PO BEDTIME [facility] Last Admin: 02/27/17 20:58 Dose: 1,000 mg Divalproex Sodium (Depakote Er Tab(*)) 250 mg PO BEDTIME [facility] Last Admin: 02/27/17 20:58 Dose: 250 mg Ziprasidone (Geodon Cap*) 160 mg PO BEDTIME [facility] Last Admin: 02/27/17 20:58 Dose: 160 mg Discharge Planning: Prescriptions provided for discharge [] Yes [x] No , as she reports a good supply of medications from prior discharge. Follow up care details as per social work arrangements. Patient response to discharge plan: [x] eager for discharge [x] agreeable with discharge plan [] ambivalent about discharge [] disagrees with discharge today
[2017-02-28] MEDS: Divalproex ER TAB(*) 500 MG PO SCH (20:31)
[2017-02-28] MEDS: Ziprasidone CAP* 80 MG PO SCH (20:31)
[2017-02-28] MEDS: Divalproex ER TAB(*) 250 MG PO SCH (20:31)
[2017-02-28 22:43] VITALS: BP 139/72
== END 2017-02-28 23:14 | disposition home or self-care (01) | DRG 885 ==
LOC: ED 09:42 → BSU 13:52
PROVIDERS: ADMIT Psychiatry & Neurology Psychiatry; ATTEND Psychiatry & Neurology Psychiatry
DX: F31.64 Bipolar disorder, current episode mixed, severe, with psychotic features (principal); I10 Essential (primary) hypertension; G47.419 Narcolepsy without cataplexy
CPT/HCPCS: 36415; 80053; 80164; 80307; 80320; 80329; 84443; 84450; 84702; 85025; 90853; 99222; 99231; 99232; 99238; A9270-GY; G0480; J1200; J1630; J2060